=== PATIENT | female | born 1950 | race Caucasian/White ===

== ENCOUNTER → 2020-12-18 10:16 | Outpatient (CLI) | payer MEDICARE, SELFPAY ==
[2020-12-18 10:43] LABS: Basophils % 0.7 % (0.1-2.0); Eosinophils # 0.1 K/mm3 (0.0-0.4); Eosinophils % 1.8 % (0.1-12.0); Hematocrit 47.4 % (37.0-47.0); Hemoglobin 15.1 g/dL (12.2-16.2); Lymphocytes # 1.3 K/mm3 (0.7-4.5); Lymphocytes % 22.2 % (10-50); Mean Corpuscular Hemoglobin 30.4 pg (27.0-31.2); Mean Platelet Volume 8.7 fl (7.4-10.4); Monocytes # 0.5 K/mm3 (0.1-1.0); Monocytes % 8.5 % (1.7-9.3); Neutrophils % 66.8 % (37.0-80.0); Platelet Count 285 K/mm3 (142-424); Red Blood Count 4.98 M/mm3 (4.20-5.40)
[2020-12-18 11:11] LABS: Alanine Aminotransferase 23 U/L (12-78); Albumin/Globulin Ratio 1.4 (1.1-1.8); Alkaline Phosphatase 103 U/L (38-126); Anion Gap 13.7 mEq/L (5-15); Aspartate Amino Transferase 32 U/L (14-36); Bilirubin,Total 0.7 mg/dl (0.2-1.3); Blood Urea Nitrogen 18 mg/dl (7-17); Calcium 9.9 mg/dl (8.4-10.2); Carbon Dioxide 29 mmol/L (22.0-30.0); Chloride 104 mmol/L (98-107); Chol/HDL Ratio 2.8 (1-3.5); Cholesterol 166 mg/dl (140-200); Estimated Glomerular Filt Rate 83 ml/min (>60); GFR (African American) 100 ML/MIN (>60); Globulin 2.9 g/dL (1.3-3.2); Glucose 105 mg/dl (74-100); HDL Cholesterol 59 mg/dl (40-60); Potassium 4.7 mmoL/L (3.5-5.1); Sodium 142 mmol/L (136-145); Total Protein,Serum 6.9 g/dl (6.3-8.2); Triglycerides 101 mg/dl (30-150); VLDL Cholesterol 20 mg/dL (0-40)
[2020-12-18 11:23] LABS: Direct LDL Cholesterol 80.87 mg/dL (100-129)
== END ==
PROVIDERS: Visit Provider Internal Medicine
DX: I10 Essential (primary) hypertension (principal); M15.0 Primary generalized (osteo)arthritis; E78.5 Hyperlipidemia, unspecified; G60.9 Hereditary and idiopathic neuropathy, unspecified; Z86.2 Personal history of diseases of the blood and blood-forming organs and certain disorders involving the immune mechanism
CPT/HCPCS: 36415; 80053; 80061; 85025

== ENCOUNTER → 2021-06-17 12:20 | Outpatient (CLI) | payer MEDICARE, SELFPAY ==
[2021-06-17 13:59] LABS: Basophils # 0.2 K/mm3 (0-0.2); Basophils % 3.1 % (0.1-2.0); Eosinophils # 0.1 K/mm3 (0.0-0.4); Eosinophils % 2.2 % (0.1-12.0); Hematocrit 47.3 % (37.0-47.0); Hemoglobin 14.9 g/dL (12.2-16.2); Lymphocytes # 1.6 K/mm3 (0.7-4.5); Lymphocytes % 24.9 % (10-50); Mean Corpuscular HGB Conc 31.5 g/dL (31.8-35.4); Mean Corpuscular Hemoglobin 30.2 pg (27.0-31.2); Mean Corpuscular Volume 95.9 fl (81-99); Mean Platelet Volume 9.7 fl (7.4-10.4); Monocytes # 0.6 K/mm3 (0.1-1.0); Neutrophils # 3.8 K/mm3 (1.8-7.8); Neutrophils % 60.8 % (37.0-80.0); Platelet Count 285 K/mm3 (142-424); Red Blood Count 4.93 M/mm3 (4.20-5.40); Red Cell Distribution Width 13.4 % (11.5-17.5); White Blood Count 6.2 K/mm3 (4.8-10.8)
[2021-06-17 15:19] LABS: Alanine Aminotransferase 20 U/L (12-78); Albumin Level 3.9 g/dl (3.5-5.0); Albumin/Globulin Ratio 1.5 (1.1-1.8); Alkaline Phosphatase 104 U/L (38-126); Anion Gap 10.9 mEq/L (5-15); Aspartate Amino Transferase 25 U/L (14-36); Bilirubin,Total 0.8 mg/dl (0.2-1.3); Blood Urea Nitrogen 25 mg/dl (7-17); Calcium 9.5 mg/dl (8.4-10.2); Carbon Dioxide 30 mmol/L (22.0-30.0); Chloride 103 mmol/L (98-107); Chol/HDL Ratio 2.9 (1-3.5); Cholesterol 168 mg/dl (140-200); Estimated Glomerular Filt Rate 82 ml/min (>60); GFR (African American) 100 ML/MIN (>60); Globulin 2.6 g/dL (1.3-3.2); Glucose 86 mg/dl (74-100); HDL Cholesterol 58 mg/dl (40-60); Potassium 4.9 mmoL/L (3.5-5.1); Sodium 139 mmol/L (136-145); Total Protein,Serum 6.5 g/dl (6.3-8.2); Triglycerides 96 mg/dl (30-150); VLDL Cholesterol 19 mg/dL (0-40)
[2021-06-17 15:30] LABS: Direct LDL Cholesterol 79.65 mg/dL (100-129)
== END ==
PROVIDERS: Visit Provider Internal Medicine
DX: I10 Essential (primary) hypertension (principal); E78.5 Hyperlipidemia, unspecified; M15.0 Primary generalized (osteo)arthritis; Z86.2 Personal history of diseases of the blood and blood-forming organs and certain disorders involving the immune mechanism
CPT/HCPCS: 80053; 80061; 85025

== ENCOUNTER 2021-07-03 21:09 | Inpatient (IN) | payer MEDICARE, SELFPAY ==
[2021-07-03 21:09] VITALS: BP 140/74; PULSE 85; RESP 20; TEMP 36.4; O2SAT 95; BMI 33.3
--- NOTE | 2021-07-03 21:12 | XR_ITS ---
PROCEDURE INFORMATION: Exam: XR Left Hip Exam date and time: 07/03/2021 9:26 PM Age: 71 years old Clinical indication: Injury or trauma; Fall; Blunt trauma (contusions or hematomas); Left; Hip; Additional info: Fall from standing TECHNIQUE: Imaging protocol: XR Left hip. Views: 2 or 3 views hip with pelvis when performed. Total images: 3 COMPARISON: ABDPELW/O CT ABD PELVIS W/O CONTRAST 09/22/2016 11:12 PM FINDINGS: Bones/joints: Osteopenia. Comminuted intertrochanteric fracture of the left proximal femur with about 2 cm impaction at the medial margin of the fracture producing mild Verus angulation. Mildly displaced comminuted fracture extension to involve the greater trochanter and possible nondisplaced extension in the lesser trochanter. No pelvic/acetabular fractures are evident. The SI joints and pubic symphysis demonstrate minor osteoarthritic changes without diastasis. Soft tissues: No gross soft tissue abnormalities. IMPRESSION: 1. Intertrochanteric fracture of the left proximal femur detailed above. 2. Osteopenia.
--- NOTE | 2021-07-03 21:12 | XR_ITS ---
PROCEDURE INFORMATION: Exam: XR Left Femur Exam date and time: 07/03/2021 9:28 PM Age: 71 years old Clinical indication: Injury or trauma; Fall; Blunt trauma; Hip; Left; Additional info: Fall from standing TECHNIQUE: Imaging protocol: XR Left femur. Views: 2 views. Total images: 4 COMPARISON: CR XR HIP LT 2-3V W/PELVIS 07/03/2021 9:26 PM FINDINGS: Bones/joints: Osteopenia. Comminuted intertrochanteric fracture of the left proximal femur with about 2 cm impaction at the medial margin of the fracture interface. Minimally displaced comminuted fracture extension into the greater and lesser trochanters. No pelvic/acetabular fractures were evident. The mid and distal femur were intact. Advanced osteoarthritic changes in the tibiofemoral compartments of the left knee. Soft tissues: Question soft tissue swelling around the left hip. IMPRESSION: 1. Intertrochanteric fracture of the left proximal femur detailed above. The mid and distal left femur are intact. 2. Osteopenia and osteoarthritic changes.
--- NOTE | 2021-07-03 21:15 | HMH.EDGENADL ---
ED Disposition Clinical Impression: Intertrochanteric fracture of left femur Qualifiers: Encounter type: initial encounter Fracture type: closed Fracture alignment: displaced Qualified Code(s): S72.142A - Displaced intertrochanteric fracture of left femur, initial encounter for closed fracture Disposition: Admitted As Inpatient Condition on Discharge: Patient was admitted - Critical Care Critical Care Time: No Attestation: On , the high probability of a clinically significant, sudden or life threatening deterioration of the following system(s) required my full and direct attention, intervention and personal management. The time I documented below is in addition to time spent performing reported procedures but includes the following listed in this critical care notation. Medical Decision Making - Medical Records Medical records reviewed: Yes: I reviewed the patient's medical records. - Simon Inquiry Pt receiving controlled substance: No Vital Signs: 07/03/21 21:09 07/03/21 22:01 Temperature 97.6 F Temperature Source Oral Pulse Rate 87 Pulse Rate [Right] 85 Respiratory Rate 20 Blood Pressure 158/87 H Blood Pressure [Right Arm] 140/74 Blood Pressure Mean [Right Arm] 96 Blood Pressure Source [Right Arm] Automatic Cuff 02 Sat by Pulse Oximetry 95 91 L Oxygen Delivery Method Room Air Room Air - Lab Data Lab Results 07/03/21 21:27: WBC 8.0, RBC 4.67, Hgb 14.0, Hct 43.9, MCV 94.1, MCH 30.0, MCHC 31.9, RDW 13.4, Plt Count 250, MPV 8.8, Neut % (Auto) 77.8, Lymph % (Auto) 14.4, Crosby % (Auto) 5.2, Eos % (Auto) 1.3, Baso % (Auto) 1.3, Neut # (Auto) 6.2, Lymph # (Auto) 1.2, Crosby # (Auto) 0.4, Eos # (Auto) 0.1, Baso # (Auto) 0.1 07/03/21 21:27: Sodium 137, Potassium 3.6, Chloride 105, Carbon Dioxide 27, Anion Gap 8.6, BUN 20 H, Creatinine 0.80, Estimated Creat Clear 70, Estimated GFR 71, Est GFR ( Amer) 86, Glucose 148 H, Calcium 8.6 07/03/21 21:27: Blood Type O Positive 07/03/21 21:53: SARS-CoV-2 (PCR) Not detected, Influenza A Untype (PCR) Not detected, Influenza Type B (PCR) Not detected 07/03/21 22:22: Urine Color Yellow, Urine Appearance Clear, Urine pH 5.0, Ur Specific Monument >= 1.030, Urine Protein Negative, Urine Glucose (UA) Negative, Urine Ketones Negative, Urine Blood Negative, Urine Nitrate Negative, Urine Bilirubin Negative, Urine Urobilinogen 0.2, Ur Leukocyte Esterase Negative, Urine RBC None, Urine WBC Occasional, Ur Squamous Epith Cells None, Urine Bacteria Trace Result diagrams: 07/03/21 21:27 07/03/21 21:27 Orders (Tests/Meds): ED MEDICATIONS Generic Name Dose Route Start Last Admin Trade Name Freq PRN Reason Stop Dose Admin Sodium Chloride 1,000 mls @ 999 mls/hr 07/03/21 21:15 07/03/21 21:58 Sod Chlor 0.9% 1000ml Bag IV 07/03/21 22:15 999 mls/hr .Q1H1M KULWANT Administration Sodium Chloride 1,000 mls @ 75 mls/hr 07/03/21 23:15 Sod Chlor 0.9% 1000ml Bag IV 08/02/21 23:14 .[id number] KULWANT Morphine Sulfate 4 mg 07/03/21 21:12 07/03/21 21:58 Morphine 4mg/Ml Syringe IV 08/02/21 21:11 4 mg ONCE PRN Administration Severe Pain Morphine Sulfate 4 mg 07/03/21 23:04 Morphine 4mg/Ml Syringe IV 08/02/21 23:03 Q4HP PRN Severe Pain Ondansetron HCl 4 mg 07/03/21 21:12 07/03/21 21:57 Ondansetron 4mg/2ml Vial IV 08/02/21 21:11 4 mg Q6 PRN Administration Nausea And Vomiting Sodium Chloride 10 ml 07/03/21 23:04 Sodium Chloride 0.9% 10ml Flush Syringe IV 08/02/21 23:03 NEEDED PRN Maintain IV Site ORDERS Category Date Time Status Type and Screen Stat K 07/03/21 21:27 Results - Radiology Data #1 Image(s): Chest Image Reviewed: Yes I reviewed the patient's radiology results, Yes I reviewed the patient's radiology image IMPRESSION: 1. No acute thoracic process. 2. Very large chronic hiatal hernia grossly unchanged from 09/22/2016. 3. Minor compressive atelectasis in the lower lobes simil
[2021-07-03 21:43] VITALS: BMI 30.7
--- NOTE | 2021-07-03 21:44 | XR_ITS ---
PROCEDURE INFORMATION: Exam: XR Chest Exam date and time: 07/03/2021 9:42 PM Age: 71 years old Clinical indication: Injury or trauma; Fall; Blunt trauma (contusions or hematomas); Additional info: L hip FX TECHNIQUE: Imaging protocol: XR of the chest. Views: 1 view. Total images: 1 COMPARISON: [facility] CT CHEST W/O CONTRAST 09/22/2016 11:09 PM FINDINGS: Lungs: Pulmonary vasculature grossly normal. No definite pulmonary infiltrates. There is bandlike alveolar density in the left base probably representing compressive atelectasis adjacent to the large hiatal hernia, similar to chest CT 09/22/2016. Additional minor atelectasis in the medial right base unchanged. Pleural spaces: No definite pleural effusion although left basilar opacities related to the hiatal hernia limits sensitivity on the left. No pneumothorax. Heart/Mediastinum: Heart size normal. Very large hiatal hernia measuring about 22 cm transverse, grossly unchanged from CT 09/22/2016. No tracheal/mediastinal shift. Bones/joints: No acute osseous abnormalities are identified. Osteopenia. Intraperitoneal space: Right upper quadrant surgical clips suggest prior cholecystectomy. IMPRESSION: 1. No acute thoracic process. 2. Very large chronic hiatal hernia grossly unchanged from 09/22/2016. 3. Minor compressive atelectasis in the lower lobes similar to prior scan.
[2021-07-03 21:48] LABS: Chloride 105 mmol/L (98-107); Potassium 3.6 mmoL/L (3.5-5.1); Sodium 137 mmol/L (136-145)
[2021-07-03 21:50] LABS: Blood Urea Nitrogen 20 mg/dl (7-17); Creatinine Clearance Estimated 70 mL/min (50-200); Estimated Glomerular Filt Rate 71 ml/min (>60); GFR (African American) 86 ML/MIN (>60)
[2021-07-03 21:51] LABS: Anion Gap 8.6 mEq/L (5-15); Basophils # 0.1 K/mm3 (0-0.2); Basophils % 1.3 % (0.1-2.0); Calcium 8.6 mg/dl (8.4-10.2); Carbon Dioxide 27 mmol/L (22.0-30.0); Eosinophils # 0.1 K/mm3 (0.0-0.4); Eosinophils % 1.3 % (0.1-12.0); Glucose 148 mg/dl (74-100); Hematocrit 43.9 % (37.0-47.0); Lymphocytes # 1.2 K/mm3 (0.7-4.5); Lymphocytes % 14.4 % (10-50); Mean Corpuscular HGB Conc 31.9 g/dL (31.8-35.4); Mean Corpuscular Volume 94.1 fl (81-99); Mean Platelet Volume 8.8 fl (7.4-10.4); Monocytes # 0.4 K/mm3 (0.1-1.0); Monocytes % 5.2 % (1.7-9.3); Neutrophils # 6.2 K/mm3 (1.8-7.8); Neutrophils % 77.8 % (37.0-80.0); Platelet Count 250 K/mm3 (142-424); Red Blood Count 4.67 M/mm3 (4.20-5.40); Red Cell Distribution Width 13.4 % (11.5-17.5)
[2021-07-03 22:01] VITALS: BP 158/87; PULSE 87; O2SAT 91
--- NOTE | 2021-07-03 22:05 | PC.NURSE ---
Dr. Perrin paged
--- NOTE | 2021-07-03 22:07 | PC.NURSE ---
Notified by diamond saw operator that she left a message for Dr. Perrin
[2021-07-03 22:24] LABS: Microscopic, Urine URINE MICROSCOPIC (MICROSCOPIC)
[2021-07-03 22:26] LABS: Coronavirus 19, PCR Not Detected (NotDetected); Influenza A, PCR Not Detected (NotDetected); Influenza B, PCR Not Detected (NotDetected)
[2021-07-03 22:27] LABS: Appearance,Urine CLEAR (Clear); Bilirubin,Urine Negative (Negative); Blood, Urine Negative (Negative); Color,Urine YELLOW (Yellow); Glucose,Urine (UA) Negative (Negative); Ketones,Urine Negative (Negative); Leukocyte Esterase,Urine Negative (Negative); Nitrate,Urine Negative (Negative); Protein,Urine Negative (Negative); Specific Gravity, Urine >= 1.030 (1.005-1.030); Urobilinogen,Urine 0.2 EU/dl (0.2)
--- NOTE | 2021-07-03 22:29 | PC.NURSE ---
RYANN REGALADO speaking to Dr. Perrin
--- NOTE | 2021-07-03 22:32 | PC.NURSE ---
paged dr reynolds @ this time
--- NOTE | 2021-07-03 22:34 | PC.NURSE ---
pt s/w Dr. Frankel for admission
[2021-07-03 22:40] VITALS: BMI 32.2
[2021-07-03 22:42] LABS: Bacteria,Urine Trace /lpf; WBC,Urine Occasional #/hpf (0-3)
[2021-07-03 23:24] VITALS: BP 139/83; PULSE 84; RESP 20; TEMP 36.4; O2SAT 95
--- NOTE | 2021-07-03 23:26 | PC.NURSE ---
patient up to floor via stretcher @ this time.
[2021-07-03 23:46] VITALS: BP 147/73; PULSE 87; RESP 18; TEMP 36.7; O2SAT 90
[2021-07-04] VITALS (18 sets, daily range): BP systolic 102–153; BP diastolic 59–88; PULSE 77–97; RESP 15–20; TEMP 36.4–43; O2SAT 91–96
--- NOTE | 2021-07-04 07:19 | P.CONPHA_ITS ---
[facility] Pharmacy VTE Monitoring - Patient Demographics Admission date: 07/03/21 Report Date: 07/04/21 Time: 07:19 Allergies/Adverse Reactions: Patient Allergies No Known Allergies Allergy (Unverified 03/16/17 14:44) Height: 1.68 m Weight: 90.9 kg Patient Problems: Current Active Problems Intertrochanteric fracture of left femur (Acute) - VTE Risk Labs: VTE Related Lab Results Hgb 14.0 g/dL (12.2-16.2) 07/03/21 21:27 Hct 43.9 % (37.0-47.0) 07/03/21 21:27 Plt Count 250 K/mm3 (142-424) 07/03/21 21:27 BUN 20 mg/dl (7-17) H 07/03/21 21:27 Creatinine 0.80 mg/dl (0.52-1.04) 07/03/21 21:27 Estimated Creat Clear 70 mL/min (50-200) 07/03/21 21:27 Was VTE Risk Assessment Performed: Yes VTE Score: 5 VTE Risk Level: Low Risk - Prophylaxis VTE Prophylaxis Ordered?: Yes Types of VTE Prophylaxis: TEDS Knee High Location of Applied Device: Bilateral Lower Extremeties
--- NOTE | 2021-07-04 07:39 | HMH.PHAINT ---
MEDICATION RECONCILIATION COMPLETED ON PATIENT USING EXTERNAL FILL HISTORY FROM PHARMACY. -SHANI WARNER, BRANDOND
--- NOTE | 2021-07-04 09:29 | HMH.HP ---
*Admission Date: 07/03/21 <Aviva Gutierrez 07/04/21 09:30> *Chief complaint: left hip pain <Aviva Gutierrez 07/04/21 09:37> *History of present illness: 71-year-old female with past medical history of hyperlipidemia, hypertension who is presenting to the ED after a fall from standing with left hip pain. Patient was outside, feeding her dogs when accidentally slipped on flat rocks. She did not hit her head, negative LOC. She complains of pain in her left hip/proximal femur with movement. This is a closed injury. Her vital signs were stable in route with EMS. She is neurovascularly intact distally with palpable DP/PT pulse on the left foot. She has mild swelling over the proximal left femur, she has no abdominal pain, no chest pain, no shortness of breath, she is alert and oriented x3, she denies headache, back pain, cervical spinal pain. She has no prior surgeries on her left leg. She has no pain in her right leg. States that her pain is well controlled however with movement it is worse. She has no other concerns. (Above as per ER physician) The patient was evaluated in the emergency room and was started on morphine for pain and Zofran for nausea. The x-ray of her pelvis and femur showed a left intertrochanteric femur fracture. The ER physician spoke with orthopedics and admitted the patient overnight for surgery today. This morning, the patient only has pain with movement. She is awaiting orthopedics consult. <Aviva Gutierrez 07/04/21 09:37> [facility] History I have reviewed the patient's past medical history: Yes <Aviva Gutierrez 07/04/21 09:37> Medical History: Reports:: Hyperlipidemia, Hypertension Denies:: Cancer, Diabetes Mellitus Type 1, Diabetes Mellitus Type 2, Internal Pacemaker, MRSA <Aviva Gutierrez 07/04/21 09:30> *Have you ever received a pneumonia vaccine?: No <Aviva Gutierrez 07/04/21 09:30> *Have you received a flu vaccine this season?: Yes <Aviva Gutierrez 07/04/21 09:30> Other Medical History: Reports: Arthritis <Aviva Gutierrez 07/04/21 09:37> Laterality Cases: Bilateral: Cataract <Aviva Gutierrez 04/08/22 09:37> Other Surgeries: Yes: Cholecystectomy, Other (tooth implant). No: Pacemaker <Aviva Gutierrez 07/04/21 09:37> Fractures: Yes (recent) <Aviva Gutierrez 07/04/21 09:30> - *Social History Last grade of school completed: Advanced degree <Aviva Gutierrez 07/04/21 09:30> Smoking Status: Never smoker <Aviva Gutierrez 07/04/21 09:30> Alcohol Intake: never <Aviva Gutierrez 07/04/21 09:30> *Occupational Status:: retired <Aviva Gutierrez 07/04/21 09:30> Housing: house <Aviva Gutierrez 07/04/21 09:30> Household Members: none <Aviva Gutierrez 07/04/21 09:30> *Travel in the last 8 weeks: None <Aviva Gutierrez 07/04/21 09:30> Family Hx:: Heart Attack, Hypertension, Stroke <Aviva Gutierrez 07/04/21 09:37> Review of Systems - Constitutional Denies chills, Denies fever(s) <Aviva Gutierrez 07/04/21 09:37> - Eyes Denies blurry vision, Denies double vision <Harshil Gutierrez07/04/21 09:37> - ENT Denies nasal congestion, Denies sore throat <Aviva Gutierrez 07/04/21 09:37> - *Cardiovascular Denies chest pain, Denies shortness of breath <Aviva Gutierrez 07/04/21 09:37> - *Respiratory Denies cough, Denies shortness of breath <Aviva Gutierrez 07/04/21 09:37> - *Gastrointestinal Denies abdominal pain, Denies loose stools, Denies nausea, Denies vomiting <Aviva Gutierrez 07/04/21 09:37> - *Genitourinary Denies difficulty urinating, Denies painful urination <Aviva Gutierrez 07/04/21 09:37> - *Musculoskeletal Reports joint pain (left hip), Reports body aches <Aviva Gutierrez 07/04/21 09:37> - *Neurologic Denies headache(s), Denies dizziness, Denies weakness <Aviva Gutierrez - 07/04/21 09:37> Meds Home Medications Medication Instructions Recorded Confirmed Type hydroCHLOROthiazide 25 mg PO DAILY 02/18/19 07/03/21 History [Hydrochlorothiazide 12.5mg Tab] Naproxen [N
--- NOTE | 2021-07-04 09:49 | CT_ITS ---
FINAL REPORT TECHNIQUE: Thin section axial CT images with coronal and sagittal reformats were performed. This study was performed with techniques to keep radiation doses as low as reasonably achievable (ALARA). Individualized dose reduction techniques using automated exposure control or adjustment of mA and/or kV according to the patient''s size were employed. CLINICAL HISTORY: left hip fracture FINDINGS: There is a comminuted left intertrochanteric fracture with mild impaction of the main fragments. The femoral head is properly located. No other fracture or dislocation is identified. IMPRESSION: Fracture as above. Reviewed, Interpreted and Dictated by Jayy Santos III, MD Transcribed by Nhung Garcia Authenticated by Jayy Santos III, MD on 07/04/2021 11:28:14 AM [facility]
--- NOTE | 2021-07-04 09:50 | HMH.ORTHOCON ---
*Admission Date: 07/03/21 <Karen Orlando 07/04/21 09:53> *Reason for consult:: Left intertrochanteric femur fracture <Karen Orlando 07/04/21 09:53> *History of present illness: Patient is a 71-year-old female admitted to the acute inpatient service from the [facility] ED yesterday 07/03/2021 after sustaining a fall at home. The patient was outside feeding her dog last night when she reports that she slipped on a rock and fell landing on her left hip. She reports that she had immediate pain in the left hip at that time and was subsequently brought to the [facility] emergency department via EMS for evaluation. X-ray performed in the emergency department demonstrates a left intertrochanteric femur fracture. This morning the patient is lying comfortably in bed. She reports that she has no pain at rest but that attempted movements of the left hip/leg are painful. She reports that her pain is well controlled with rest and oral pain medication. She denies hitting her head, any other injuries, chest pain, shortness of breath, palpitations, or distal tingling/numbness. At baseline she does not use a cane or walker to ambulate and lives alone in her own home. She is independent for all activities of daily living. Her past medical history is significant for hypertension and hyperlipidemia. She denies any other symptoms or concerns at this time. <Karen Orlando 07/04/21 09:53> [facility] History Medical History: Reports:: Hyperlipidemia, Hypertension Denies:: Cancer, Diabetes Mellitus Type 1, Diabetes Mellitus Type 2, Internal Pacemaker, MRSA <Karen Orlando 07/04/21 09:53> *Have you ever received a pneumonia vaccine?: No <Karen Orlando 07/04/21 09:53> *Have you received a flu vaccine this season?: Yes <Karen Orlando 07/04/21 09:53> Other Medical History: Reports: Arthritis <Karen Orlando 07/04/21 09:53> Laterality Cases: Bilateral: Cataract <Karen Orlando 07/04/21 09:53> Other Surgeries: Yes: Cholecystectomy, Other (tooth implant). No: Pacemaker <Karen Orlando 07/04/21 09:53> Fractures: Yes (recent) <Karen Orlando 07/04/21 09:53> - *Social History Last grade of school completed: Advanced degree <Karen Orlando 07/04/21 09:53> Smoking Status: Never smoker <Karen Orlando 07/04/21 09:53> Alcohol Intake: never <Karen Orlando 07/04/21 09:53> *Occupational Status:: retired <Karen Orlando 07/04/21 09:53> Housing: house <Karen Orlando 07/04/21 09:53> Household Members: none <Karen Orlando 07/04/21 09:53> *Travel in the last 8 weeks: None <Karen Orlando 07/04/21 09:53> Family Hx:: Heart Attack, Hypertension, Stroke <Karen Orlando 07/04/21 09:53> Review of Systems - Review of Systems Review of systems:: pertinent systems reviewed and negative unless documented below <Karen Orlando 07/04/21 10:13> - Constitutional Denies anorexia, Denies fatigue, Denies fever(s), Denies headache(s), Denies weakness <Karen Orlando 07/04/21 10:13> - Eyes Denies blind spots, Denies change in vision, Denies double vision <Karen Orlando 07/04/21 10:13> - ENT Denies abnormal hearing, Denies poor balance, Denies dizziness, Denies difficulty swallowing, Denies headache(s), Denies nasal congestion, Denies neck pain, Denies nose pain, Denies sore throat <Karen Orlando 07/04/21 10:13> - *Cardiovascular Denies chest pain, Denies chest pain at rest, Denies shortness of breath, Denies shortness of breath with activity, Denies foot swelling <Karen Orlando 07/04/21 10:13> - *Respiratory Denies chest congestion, Denies cough, Denies shortness of breath, Denies shortness of breath with activity, Denies pain with cough, Denies stridor, Denies wheezing <Karen Orlando - 07/04/21 10:13> - *Gastrointestinal Denies abdominal pain, Denies change in bowel habits, Denies change in stools, Denies constipation, Denies loose stools, Denies black, tarry
--- NOTE | 2021-07-04 14:20 | HMH.ANESCL ---
[facility] Anesthesia Checklist - Patient Identification Patient Identification: Arm Band - Structural Data Admitted From: Inpatient Planned Operative Procedure/s: Gamma nail Consent for Planned Operative Procedure(s) Verified: Yes - NPO Status Verified Time NPO: 00:00 - Airway Assessment C-Spine Mobility Assessed: Yes TMJ Mobility Assessed: Yes Dentition: Good Dentition - Neurological Assessment Level of Consciousness: Awake Hx Seizures: No Numbness or tingling in extremities: No - Anesthesia Plan Anesthesia Risk discussed: Yes Anesthesia Plan: Verified ASA Class: II Anesthesia Type: Spinal (SPINAL/GENERAL) [facility] History I have reviewed the patient's past medical history: Yes Medical History: Reports:: Gastroesophageal Reflux Disease(GERD), Hyperlipidemia, Hypertension Denies:: Cancer, Diabetes Mellitus Type 1, Diabetes Mellitus Type 2, Internal Pacemaker, MRSA *Have you ever received a pneumonia vaccine?: No *Have you received a flu vaccine this season?: Yes Other Medical History: Reports: Arthritis Anesthesia experience/problems:: None Laterality Cases: Bilateral: Cataract Other Surgeries: Yes: Cholecystectomy, Other (tooth implant). No: Pacemaker Fractures: Yes (recent) - *Social History Last grade of school completed: Advanced degree Smoking Status: Never smoker Alcohol Intake: never Substance Use Type: denies use *Occupational Status:: retired Housing: house Household Members: none *Travel in the last 8 weeks: None Family Hx:: Heart Attack, Hypertension, Stroke
--- NOTE | 2021-07-04 16:16 | SUR.OPER ---
1555-family updated at this time
--- NOTE | 2021-07-04 16:38 | XR_ITS ---
PROCEDURE INFORMATION: Exam: XR Left Femur Exam date and time: 07/04/2021 3:05 PM Age: 71 years old Clinical indication: Device placement; Other: Gamma nail; Additional info: Left gamma nail placement in or. Fluoro time-1.30 TECHNIQUE: Imaging protocol: XR Left femur. Views: 2 views. COMPARISON: CR XR FEMUR LT 2V 07/03/2021 9:28 PM FINDINGS: Tubes, catheters and devices: Limited fluoroscopic images submitted for review prior to placement of fixation device. Bones/joints: Previously demonstrated intertrochanteric fracture is again identified. Soft tissues: Unremarkable. IMPRESSION: Fluoroscopic images demonstrating left intertrochanteric fracture.
--- NOTE | 2021-07-04 17:32 | HMH.ANESI ---
[facility] Anesthesia Record Part I Intake, IV Amount: 200 Estimated blood loss (mL): 200 Urine output (mL): 600 Blood Pressure: 151/64 SaO2: 94 Pulse Rate: 97 Respiratory Rate: 20 Temperature: 98.3 F Patient is:: Drowsy Stable to PACU at:: 17:20
--- NOTE | 2021-07-04 18:00 | HMH.OPNOTE ---
Date of procedure: 07/04/21 Pre-op Diagnosis:: Closed, comminuted, displaced intertrochanteric fracture, left femur. Post-op Diagnosis:: Same Procedure performed:: Closed reduction and cephalomedullary nailing, left femur Surgeon:: Acosta Perrin MD Provider Relations Advocate(s):: Karen Orlando PA-C OYSTER GROWER:: Almas Larry Anesthesia: LMA Estimated blood loss (mL): 300 Clinical Note:: Patient is a 71-year-old female who tripped and fell sustaining an injury to her left hip yesterday. Following evaluation in the emergency room where x-ray showed a displaced and comminuted intertrochanteric fracture of the left proximal femur, patient was admitted for further management. After evaluating the patient, I have discussed the diagnosis and management options in detail including nonsurgical and surgical, with the patient. Prior to the injury patient was active and mobile independently. She lives by herself. After a detailed discussion with the patient a decision was made to fix the fracture internally with a cephalo-medullary nail. I have discussed the procedure, risks and benefits, postoperative recovery and rehabilitation and the expected outcomes. The complications discussed include but are not limited to DVT, PE, infection, bleeding, injury to nerves and blood vessels, screw cut-out/implant failure, loss of fixation, nonunion, malunion/malrotation, osteonecrosis of the femoral head, femoral shaft fracture, painful hardware, heterotopic ossification, stiffness, weakness, incomplete relief of pain, incomplete return of function or motion and the likely need for further surgery in future, and anesthetic/medical complications including heart attack, stroke, transfusion reaction or . The patient wished to proceed with the surgical remediation. Consent form was reviewed and signed by me. The limb was appropriately marked and initialed by me. Following appropriate preoperative workup and medical clearance, patient is brought to the operating room for surgery. The surgery is indicated to reduce and stabilize the fracture, relieve pain and improve function. Patient understood the risks, agreed to proceed with surgery, signed the consent form and no guarantees or assurances were given or implied. Operative findings:: Comminuted, displaced and unstable intertrochanteric fracture left proximal femur as noted on the preoperative imaging. The fracture is well reduced with closed manipulation prior to fixation. Bone quality is good. Operative note:: Following appropriate preoperative workup and medical clearance, patient is brought to the operating room and a general anesthesia was administered by the camera engineer. Patient was then positioned supine on the fracture table and all the bony prominences were appropriately padded. The left foot was secured in the footplate and the footplate was attached to the fracture table. The right leg was placed out of the way in a leg means. Under fluoroscopic guidance the fracture was reduced by traction and satisfactory reduction was obtained. The reduction was confirmed on both AP and lateral views. The left hip and thigh were then prepped and draped in the usual sterile fashion. Administration of prophylactic antibiotics was confirmed with the camera engineer (IV Ancef and vancomycin). A preprocedure timeout was performed as per the hospital protocol. After marking the level of the greater trochanter on the skin under fluoroscopy, a skin incision was made proximal to the greater trochanter in line with the femoral shaft. The dissection was then carried through the subcutaneous tissue. The tensor fascia muscle was split in line with the fibers. This provided access to the tip of the greater trochanter. Under fluoroscopic guidance a guidewire was placed at the tip of the greater trochanter, the position was confirmed on both fluoroscopic views and advanced into the proximal femur. The proximal segment was then reamed over the guidewire and the guidewire was
--- NOTE | 2021-07-04 18:08 | PC.NURSE ---
174-detailed report called to Tanya Luevano RN [id number]-pt transported to 2nd floor room 201 via hospital bed per JENNIFER Talamantes and ROLANDO Pizarro, pt left in care of JENNIFER Roman with bed locked in lowest position, vss,pt stable family at bedside
[2021-07-05] VITALS: BP 126/73; PULSE 88; RESP 16; TEMP 36.4; O2SAT 93
[2021-07-05 04:00] VITALS: BP 123/71; PULSE 90; RESP 16; TEMP 36.8; O2SAT 96
[2021-07-05 05:00] VITALS: BMI 31.8
[2021-07-05 07:19] LABS: Basophils % 0.3 % (0.1-2.0); Eosinophils # 0.1 K/mm3 (0.0-0.4); Eosinophils % 0.7 % (0.1-12.0); Hematocrit 35.5 % (37.0-47.0); Hemoglobin 11.8 g/dL (12.2-16.2); Lymphocytes # 1.2 K/mm3 (0.7-4.5); Lymphocytes % 12.1 % (10-50); Mean Corpuscular HGB Conc 33.2 g/dL (31.8-35.4); Mean Corpuscular Hemoglobin 30.9 pg (27.0-31.2); Mean Platelet Volume 8.6 fl (7.4-10.4); Monocytes # 0.5 K/mm3 (0.1-1.0); Monocytes % 5.7 % (1.7-9.3); Neutrophils # 7.7 K/mm3 (1.8-7.8); Neutrophils % 81.2 % (37.0-80.0); Platelet Count 184 K/mm3 (142-424); Red Blood Count 3.81 M/mm3 (4.20-5.40); Red Cell Distribution Width 13.3 % (11.5-17.5); White Blood Count 9.5 K/mm3 (4.8-10.8)
[2021-07-05 07:21] LABS: Chloride 106 mmol/L (98-107); Potassium 3.4 mmoL/L (3.5-5.1); Sodium 136 mmol/L (136-145)
[2021-07-05 07:23] LABS: Blood Urea Nitrogen 13 mg/dl (7-17); Creatinine Clearance Estimated 73 mL/min (50-200); Estimated Glomerular Filt Rate 99 ml/min (>60); GFR (African American) 119 ML/MIN (>60)
[2021-07-05 07:24] LABS: Alanine Aminotransferase 26 U/L (12-78); Albumin/Globulin Ratio 1.3 (1.1-1.8); Alkaline Phosphatase 82 U/L (38-126); Anion Gap 6.4 mEq/L (5-15); Aspartate Amino Transferase 37 U/L (14-36); Bilirubin,Total 0.6 mg/dl (0.2-1.3); Calcium 7.7 mg/dl (8.4-10.2); Carbon Dioxide 27 mmol/L (22.0-30.0); Globulin 2.4 g/dL (1.3-3.2); Glucose 124 mg/dl (74-100); Total Protein,Serum 5.4 g/dl (6.3-8.2)
[2021-07-05 07:39] VITALS: BP 126/88; PULSE 88; RESP 18; TEMP 36.9; O2SAT 90
--- NOTE | 2021-07-05 08:49 | HMH.ACPN2 ---
Internal Medicine - PN: Subj *Date: 07/05/21 *Time: 08:49 Interval history: POD#1. No unusual complaints. Rested fairly well. Anxious to proceed with therapy. Exam Vital signs and Labs for Last 24 Hours: Temp Pulse Resp BP Pulse Ox 98.4 F 88 18 126/88 90 L 07/05/21 07:39 07/05/21 07:39 07/05/21 07:39 07/05/21 07:39 07/05/21 07:39 Laboratory Results - last 24 hr 07/05/21 06:33: WBC 9.5, RBC 3.81 L, Hgb 11.8 L, Hct 35.5 L, MCV 93.0, MCH 30.9, MCHC 33.2, RDW 13.3, Plt Count 184 D, MPV 8.6, Neut % (Auto) 81.2 H, Lymph % (Auto) 12.1, [place] % (Auto) 5.7, Eos % (Auto) 0.7, Baso % (Auto) 0.3, Neut # (Auto) 7.7, Lymph # (Auto) 1.2, [place] # (Auto) 0.5, Eos # (Auto) 0.1, Baso # (Auto) 0.0 07/05/21 06:33: Sodium 136, Potassium 3.4 L, Chloride 106, Carbon Dioxide 27, Anion Gap 6.4, BUN 13 D, Creatinine 0.60 D, Estimated Creat Clear 73, Estimated GFR 99, Est GFR ( Amer) 119 D, Glucose 124 H, Calcium 7.7 L, Total Bilirubin 0.6, AST 37 H, ALT 26, Alkaline Phosphatase 82, Total Protein 5.4 L, Albumin 3.0 L, Globulin 2.4, Albumin/Globulin Ratio 1.3 I & O for Last 24 hours: Intake & Output 07/02/21 07/03/21 07/04/21 07/05/21 11:59 11:59 11:59 11:59 Intake Total 570 / 570 920 / 920 Output Total 700 / 700 2100 / 2100 Balance -130 / -130 -1180 / -1180 Weight 200 lb 6.4 oz 198 lb 4 oz Narrative: Alert and oriented. Lungs are clear to auscultation. Heart is regular. Extremities no edema or calf tenderness. Assessment and Plan (1) Intertrochanteric fracture of left femur Status: Acute Qualifiers: Encounter type: initial encounter Fracture type: closed Fracture alignment: displaced Qualified Code(s): S72.142A - Displaced intertrochanteric fracture of left femur, initial encounter for closed fracture Category: Medical Code(s): S72.142A - Displaced intertrochanteric fracture of left femur, initial encounter for closed fracture (2) Hypertension Status: Chronic Category: Medical Code(s): I10 - Essential (primary) hypertension (3) Arthritis Status: Chronic Category: Medical Code(s): M19.90 - Unspecified osteoarthritis, unspecified site (4) Hyperlipemia Status: Chronic Category: Medical Code(s): E78.5 - Hyperlipidemia, unspecified - Assessment and plan all Dx Assessment and Plan for all problems:: Doing well POD #1. Proceed with physical therapy as ordered
[2021-07-05 11:02] VITALS: BP 121/64; PULSE 85; RESP 18; TEMP 36.9; O2SAT 92
--- NOTE | 2021-07-05 13:18 | HMH.PTEV ---
Physical Therapy Evaluation Rehab PT IP Evaluation Start: 07/04/21 17:50 Freq: ONCE Status: Active Protocol: Document 07/05/21 13:08 WAI (Rec: 07/05/21 13:17 WAI [id number]) Subjective/History History History Pt admitted to [facility] as 71 YO female, s/p fall, left hip ( femur fx), ORIF sx. on 07/04/21, WBAT LLE Subjective Subjective Pt reports 'feeling pretty good, I'm just tired of sitting in this bed. No pain right now, ready to get up and see how it goes.' Rehab PT IP Eval Objective Appearance Patient Behavior Appropriate,Cooperative Patient Orientation Person,Place,Time,Name,Age Difficulty following instructions none Speech Pattern Clear,Appropriate,Coherent Ambulation Patient Able to Ambulate Yes Ambulation Observation IP General Gait Pattern Observation Antalgic Gait,Shuffling Step, Decrease Weight Bear (L), Decrease Stride Lngth (L) Ambulation Distance (feet) 7 Ambulation Assistive Device Rolling Walker Ambulation Ability Minimal x 1 (25% assist) Balance Ability to Arise Able, uses arms to help Sitting Balance Steady, safe Standing Balance Unsteady Dynamic Sitting Balance Ability Good Dynamic Standing Balance Ability Fair Transfers Bed Transfer Ability Moderate x 1 (50% assist) Chair Transfer Ability Moderate x 1 (50% assist) Sit to Stand Bed Transfer Ability Moderate x 1 (50% assist), Maximum x 1 (75% assist) Pain L Hip Pain Intensity 3 ROM All Extremities PT ROM Status WFL Abnormal ROM Comment limited left hip/LE d/t pain MMT All Extremities PT MMT WFL Abnormal MMT Grade limited left hip d/t pain Rehab PT IP prob,goals,plan Problems Date of Evaluation: 07/05/21 PT IP Problems Bed Mobility,Transfers,Gait, Balance,Self care,Safety Rehab Potential Rehab Potential Good Equipment Needs Assistive Devices Rolling / Wheeled Walker Plan PT Intervention Plan Bed Mobility,Transfers,Gait, Balance,Self care,Safety, Therapeutic Exercise PT Plan Frequency BID Duration LOS Discharge Goals Bed Transfer Ability Minimal x 1 (25% assist) Sit to Stand Chair Transfer Ability Contact Guard/Hand Hold Ambulation Assistive Device Rolling
[2021-07-05 15:12] VITALS: BP 127/69; PULSE 86; RESP 18; TEMP 36.8; O2SAT 91
--- NOTE | 2021-07-05 18:42 | PC.NURSE ---
pt has done well this shift. Got up to chair with therapy and nursing assisted her back to bed. F/C was discontinued. She reports her pain has been well managed. Denies nay SOA. Dressing to left hip is c/d/i
[2021-07-05 20:00] VITALS: BP 140/58; PULSE 92; RESP 18; TEMP 36.9; O2SAT 94
--- NOTE | 2021-07-05 21:43 | HMH.ORTHPN ---
Subjective Date: 07/05/21 Time: 21:15 Principal diagnosis: S/p cephalomedullary nailing, left femur Interval history: Patient is a 71-year-old female, status post cephalo-medullary nailing LEFT femur, post op day #1. She is lying down on the bed and appears comfortable; says she is doing well. She says she started mobilizing with physical therapy and did well this afternoon. She is eating and drinking well. She says her pain is well controlled with as needed pain medication. No history of any fevers, chills or rigors. No history of any nausea, vomiting, chest pain or SOB. PN: Obj Ex Vital signs: Temp Pulse Resp BP Pulse Ox 98.4 F 92 H 18 140/58 L 94 L 07/05/21 20:00 07/05/21 20:00 07/05/21 20:00 07/05/21 20:00 07/05/21 20:00 Narrative: Laboratory Results - last 24 hr 07/05/21 06:33: WBC 9.5, RBC 3.81 L, Hgb 11.8 L, Hct 35.5 L, MCV 93.0, MCH 30.9, MCHC 33.2, RDW 13.3, Plt Count 184 D, MPV 8.6, Neut % (Auto) 81.2 H, Lymph % (Auto) 12.1, [place] % (Auto) 5.7, Eos % (Auto) 0.7, Baso % (Auto) 0.3, Neut # (Auto) 7.7, Lymph # (Auto) 1.2, [place] # (Auto) 0.5, Eos # (Auto) 0.1, Baso # (Auto) 0.0 07/05/21 06:33: Sodium 136, Potassium 3.4 L, Chloride 106, Carbon Dioxide 27, Anion Gap 6.4, BUN 13 D, Creatinine 0.60 D, Estimated Creat Clear 73, Estimated GFR 99, Est GFR ( Amer) 119 D, Glucose 124 H, Calcium 7.7 L, Total Bilirubin 0.6, AST 37 H, ALT 26, Alkaline Phosphatase 82, Total Protein 5.4 L, Albumin 3.0 L, Globulin 2.4, Albumin/Globulin Ratio 1.3 Intake & Output 07/03/21 07/04/21 07/05/21 07/06/21 11:59 11:59 11:59 11:59 Intake Total 570 / 570 920 / 920 720 / 720 Output Total 700 / 700 2100 / 2100 2725 / 2725 Balance -130 / -130 -1180 / -1180 -2004 / Weight 200 lb 6.4 oz 198 lb 4 oz Objective: Vitals, I&O and Labs: I reviewed the vital signs, lab results, medication, nursing notes, medical progress notes and also discussed with the nursing staff regarding patient?s progress. Exam: General appearance: Alert, awake, no acute distress Cardiovascular: regular rate & rhythm Respiratory: no respiratory distress; speaks in full sentences ABD: soft and nontender. Neuro: alert, awake oriented x 3 Psych: Appropriate mood and affect On examination of the LEFT lower extremity, the limb lengths are equal. The alignment is neutral. The dressings over the hip/thigh are clean, dry and intact. Attempted movements of the hip are painful. Distal neurovascular status is intact. Distal pulses are 2+. Distal sensation is intact to light touch throughout. No motor deficits noted distally. Calf is soft and nontender. No clinical signs of DVT noted. - Urinary Catheter Management Koehler Cath placed during this visit: no Progress Note: A&P (1) Intertrochanteric fracture of left femur Status: Acute (2) Hypertension Status: Chronic (3) Arthritis Status: Chronic (4) Hyperlipemia Status: Chronic Assessment and Plan for All Diagnoses:: I have reviewed the clinical findings and progress with the patient. Patient is doing well and advised her to continue mobilization weight bearing as tolerated. Discontinue IV fluids as patient is eating and drinking well. Continue PT/OT, pain management with as needed narcotic analgesics. Care management to look into discharge planning. From an orthopedic standpoint, patient can be discharged when medically appropriate. Recommend DVT prophylaxis for 6 weeks postop. Follow-up in my office in 2 weeks? time with check x-ray. Continue medical management as per Dr. Frankel.
--- NOTE | 2021-07-06 03:22 | PC.NURSE ---
Patient has done well this shift. She has used the bedside commode with 2 assist and tolerated it well. Patient states I haven't had a lot of pain with it, just when I move around . Patient has used her IS while awake. Patient has voiced no complaints to this RN. Will continue to monitor.
[2021-07-06 04:31] VITALS: BP 145/77; PULSE 88; RESP 18; TEMP 37; O2SAT 91
[2021-07-06 05:00] VITALS: BMI 31.8
[2021-07-06 07:14] VITALS: BP 132/79; PULSE 89; RESP 17; TEMP 36.9; O2SAT 93
--- NOTE | 2021-07-06 09:06 | HMH.ACPN2 ---
Internal Medicine - PN: Subj *Date: 07/06/21 *Time: 09:06 Interval history: POD#2 No unusual complaints. She rested fairly well. She was able to sit up in the chair yesterday. Does not feel comfortable going home and is interested in acute rehab placement. Exam Vital signs and Labs for Last 24 Hours: Temp Pulse Resp BP Pulse Ox 98.5 F 89 17 132/79 93 L 07/06/21 07:14 07/06/21 07:14 07/06/21 07:14 07/06/21 07:14 07/06/21 07:14 I & O for Last 24 hours: Intake & Output 07/03/21 07/04/21 07/05/21 07/06/21 11:59 11:59 11:59 11:59 Intake Total 570 / 570 920 / 920 960 / 960 Output Total 700 / 700 2100 / 2100 3525 / 3525 Balance -130 / -130 -1180 / -1180 -2565 / -2565 Weight 200 lb 6.4 oz 198 lb 4 oz 198 lb 4.011 oz - *Routine Respiratory Exam Present: CTA bilaterally - *Routine Cardiovascular Exam Present: RRR - *Routine Extremities Exam Absent: edema Assessment and Plan (1) Intertrochanteric fracture of left femur Status: Acute Qualifiers: Encounter type: initial encounter Fracture type: closed Fracture alignment: displaced Qualified Code(s): S72.142A - Displaced intertrochanteric fracture of left femur, initial encounter for closed fracture Category: Medical Code(s): S72.142A - Displaced intertrochanteric fracture of left femur, initial encounter for closed fracture (2) Hypertension Status: Chronic Category: Medical Code(s): I10 - Essential (primary) hypertension (3) Arthritis Status: Chronic Category: Medical Code(s): M19.90 - Unspecified osteoarthritis, unspecified site (4) Hyperlipemia Status: Chronic Category: Medical Code(s): E78.5 - Hyperlipidemia, unspecified - Assessment and plan all Dx Assessment and Plan for all problems:: Continue physical and Occupational Therapy. Care management consult for acute rehab placement.
[2021-07-06 14:43] VITALS: BP 107/75; PULSE 91; RESP 16; TEMP 36.9; O2SAT 93
[2021-07-06 20:14] VITALS: BP 135/75; PULSE 96; RESP 18; TEMP 36.9; O2SAT 93
[2021-07-07 04:31] VITALS: BP 103/73; PULSE 83; RESP 16; TEMP 36.5; O2SAT 98
[2021-07-07 04:51] VITALS: BP 128/68; PULSE 86; RESP 18; TEMP 36.8; O2SAT 96
[2021-07-07 05:00] VITALS: BMI 31.8
[2021-07-07 07:34] VITALS: BP 128/63; PULSE 95; RESP 18; TEMP 37.1; O2SAT 95
--- NOTE | 2021-07-07 07:46 | HMH.ORTHPN ---
Subjective Date: 07/07/21 Time: 07:15 Principal diagnosis: S/p cephalomedullary nailing, left femur Interval history: Patient is a 71-year-old female admitted to the acute inpatient service following an uneventful cephalomedullary nailing of the left hip on 07/04/2021. Today she is postop day #3. This morning the patient is lying comfortably in bed. She reports that she has some pain in her left hip but that it is well controlled with as needed pain medication. She reports that she is eating and drinking well and denies any episodes of nausea or vomiting. She states that she has ambulated with the assistance of physical therapy using a walker and reports that this is going well. She denies chest pain, shortness of breath, palpitations, fevers, chills, rigors, or distal tingling/numbness. She denies any other symptoms or concerns at this time. PN: Obj Ex Vital signs: Temp Pulse Resp BP Pulse Ox 98.7 F 95 H 18 128/63 95 07/07/21 07:34 07/07/21 07:34 07/07/21 07:34 07/07/21 07:34 07/07/21 07:34 - Constitutional no acute distress, cooperative - Routine HEENT Exam Head: Present: normocephalic, atraumatic Eye: Present: EOMI, PERRL ENT: Present: mucous membranes moist - Routine Neck Exam Present: supple, full ROM, trachea midline. Absent: JVD, lymphadenopathy - Routine Respiratory Exam Absent: accessory muscle use, respiratory distress Comments: Symmetric chest movement, able to speak in complete sentences - Routine Cardiovascular Exam Present: RRR Comments: Normal peripheral pulses - Routine Abdominal Exam Present: soft. Absent: tenderness - Routine Extremities Exam Present: pulses intact, normal capillary refill. Absent: calf tenderness Comments: Upon examination of the lower extremities: The limb lengths are equal. Dressings present over the left hip are clean, dry, and intact. No evidence of drainage or bleeding noted. The left hip and proximal femur are mildly tender to palpation. Attempted movements of the left hip are somewhat painful. Thigh and calf are soft nontender; Homans' sign is negative. No clinical evidence of DVT noted. Posterior tibial pulse 1+; capillary refill is brisk. Sensation to light touch is grossly intact throughout. Patient is actively mobilizing the foot, ankle, and toes. - Routine Skin Exam Present: intact, warm, normal turgor. Absent: cyanosis, erythema, jaundice - Routine Neurological Exam Present: alert, oriented X3, moving all extremities, normal tone, normal speech. Absent: sensory deficit, motor deficit, altered mental status - Routine Psychiatric Exam Present: normal affect, cooperative, good judgment - Urinary Catheter Management Koehler Cath placed during this visit: no Urethral indwelling: No Progress Note: A&P (1) Intertrochanteric fracture of left femur Status: Acute (2) Hypertension Status: Chronic (3) Arthritis Status: Chronic (4) Hyperlipemia Status: Chronic Assessment and Plan for All Diagnoses:: I have discussed the clinical findings and progress with the patient. Overall she is doing well from an orthopedic standpoint can be discharged when medically appropriate. Sterile bordered gauze dressings present over the left hip are clean, dry, and intact. The patient has Dermabond Prineo dressings in place, I have given her appropriate care instructions; do not remove the Dermabond Prineo dressing. After showering, pat the incisions dry and do not apply any lotions or creams. Plan to continue PT/OT; patient may continue to mobilize weightbearing as tolerated on her left side with use of a walker and transition to a cane as she progresses. Continue DVT prophylaxis as ordered for 6 weeks postoperatively. Continue rest, ice, elevation, activity modification, and pain medication as needed. Case management team coordinating discharge planning; the patient has verbalized that she believes she will benefit from placement
--- NOTE | 2021-07-07 08:22 | HMH.ACPN2 ---
<Nhung Benavides - Last Filed: 07/07/21 08:22> Internal Medicine - PN: Subj *Date: 07/07/21 *Time: 08:22 Interval history: She is doing well and ready to move on. She states she walked to the window yesterday and sat up in a chair for about 3 hours. She is eating without difficulties. She denies chest pain and shortness of breath. Bowels are moving and she has a pure wick in place. Exam Vital signs and Labs for Last 24 Hours: Temp Pulse Resp BP Pulse Ox 98.7 F 95 H 18 128/63 95 07/07/21 07:34 07/07/21 07:34 07/07/21 07:34 07/07/21 07:34 07/07/21 07:34 I & O for Last 24 hours: Intake & Output 07/04/21 07/05/21 07/06/21 07/07/21 11:59 11:59 11:59 11:59 Intake Total 570 / 570 920 / 920 960 / 960 840 / 840 Output Total 700 / 700 2100 / 2100 3525 / 3525 600 / 600 Balance -130 / -130 -1180 / -1180 -2565 / -2565 240 / 240 Weight 200 lb 6.4 oz 198 lb 4 oz 198 lb 4.011 oz 198 lb 4.011 oz - Constitutional no acute distress - *Routine Respiratory Exam Present: CTA bilaterally (Anteriorly and posteriorly) - *Routine Cardiovascular Exam Present: RRR - *Routine Abdominal Exam Present: soft, normoactive bowel sounds. Absent: tenderness - *Routine Extremities Exam Absent: edema, calf tenderness Comments: Dressings on the left leg is clean and dry. - *Routine Neurological Exam Present: alert, oriented X3 Assessment and Plan (1) Intertrochanteric fracture of left femur Status: Acute Qualifiers: Encounter type: initial encounter Fracture type: closed Fracture alignment: displaced Qualified Code(s): S72.142A - Displaced intertrochanteric fracture of left femur, initial encounter for closed fracture Category: Medical Code(s): S72.142A - Displaced intertrochanteric fracture of left femur, initial encounter for closed fracture (2) Hypertension Status: Chronic Category: Medical Code(s): I10 - Essential (primary) hypertension (3) Arthritis Status: Chronic Category: Medical Code(s): M19.90 - Unspecified osteoarthritis, unspecified site (4) Hyperlipemia Status: Chronic Category: Medical Code(s): E78.5 - Hyperlipidemia, unspecified - Assessment and plan all Dx Assessment and Plan for all problems:: Patient is requesting ongoing rehab. Care management to assist with placement. <MarlysEllis - Last Filed: 07/07/21 17:34> Internal Medicine - PN: Subj *Date: 07/07/21 *Time: 17:33 Exam Vital signs and Labs for Last 24 Hours: Temp Pulse Resp BP Pulse Ox 97.9 F 83 18 123/49 L 94 L 07/07/21 16:00 07/07/21 16:00 07/07/21 16:00 07/07/21 16:00 07/07/21 16:00 I & O for Last 24 hours: Intake & Output 07/05/21 07/06/21 07/07/21 07/08/21 11:59 11:59 11:59 11:59 Intake Total 920 / 920 960 / 960 840 / 840 240 / 240 Output Total 2100 / 2100 3525 / 3525 600 / 600 Balance -1180 / -1180 -2565 / -2565 240 / 240 240 / 240 Weight 198 lb 4 oz 198 lb 4.011 oz 198 lb 4.011 oz Assessment and Plan (1) Intertrochanteric fracture of left femur Status: Acute Qualifiers: Encounter type: initial encounter Fracture type: closed Fracture alignment: displaced Qualified Code(s): S72.142A - Displaced intertrochanteric fracture of left femur, initial encounter for closed fracture Category: Medical Code(s): S72.142A - Displaced intertrochanteric fracture of left femur, initial encounter for closed fracture (2) Hypertension Status: Chronic Category: Medical Code(s): I10 - Essential (primary) hypertension (3) Arthritis Status: Chronic Category: Medical Code(s): M19.90 - Unspecified osteoarthritis, unspecified site (4) Hyperlipemia Status: Chronic Category: Medical Code(s): E78.5 - Hyperlipidemia, unspecified - Assessment and plan all Dx Assessment and Plan for all problems:: Patient seen and examined. Concur with above. Awaiting disposition.
--- NOTE | 2021-07-07 09:31 | SW/DCPLANNER ---
Addendum entered by Katty Centeno 07/08/21 09:22: The plan is for this patient to discharge to [facility] level of care today. COVID swab has been collected and faxed to [facility] (NEGATIVE). Addendum entered by Katty Centeno 07/07/21 14:54: Currently still waiting for authorization from patient's insurance for SNF level of care. Addendum entered by Katty Centeno 07/07/21 10:42: [facility] has stated that she can accept this patient and precert has been started. Marisa is aware that patient is medically stable for discharge. I will continue to follow up with Marisa from [facility]. Original Note: This patient admitted with hip fx and did have surgery on Tuesday 07/04. Patient stated this AM that she is interested in SNF level of care at time of discharge at [facility] or [facility] (no beds). Patient information has been faxed to [facility]. Patient is medically stable for discharge.
[2021-07-07 14:19] VITALS: BP 145/88; PULSE 91; TEMP 36.6
--- NOTE | 2021-07-07 14:19 | P.PN_ITS ---
[facility] Anesthesia Record Part II Discharge Time: 17:50 Destination: Medical Surgical Department PACU nurse assessment reviewed?: Yes Patient Condition:: Good Anesthesia Complications:: None Swallowing reflex intact?: Yes Cyanosis?: No Blood Pressure: 145/88 Pulse Rate: 91 Temperature: 98 F Mental Status: Alert & Oriented Pain level:: 0 Nausea and/or vomitting:: None Intake, IV Amount: 0
[2021-07-07 16:00] VITALS: BP 123/49; PULSE 83; RESP 18; TEMP 36.6; O2SAT 94
[2021-07-07 20:00] VITALS: BP 122/68; PULSE 91; RESP 18; TEMP 37; O2SAT 94
[2021-07-08 00:17] VITALS: RESP 16
[2021-07-08 05:00] VITALS: BMI 31.8
--- NOTE | 2021-07-08 05:49 | PC.NURSE ---
0400 Pt lying in bed. Requested pure wick for nighttime use only. Pt stated that pain is well controlled with current pain medication. Pt up to the chair and to bed this shift. Minimal use of pain medication. Voiced that it was effective in her pain control. Has call astudillo within reach and voiced 0 needs. Assessment remains unchanged from beginning of shift.
[2021-07-08 07:57] LABS: Coronavirus 19, PCR Not Detected (NotDetected); Influenza A, PCR Not Detected (NotDetected); Influenza B, PCR Not Detected (NotDetected)
[2021-07-08 08:00] VITALS: BP 117/69; PULSE 86; RESP 16; TEMP 37; O2SAT 96; O2SAT 97
--- NOTE | 2021-07-08 09:08 | HMH.ORTHPN ---
Subjective Date: 07/08/21 Time: 08:30 Principal diagnosis: S/p cephalomedullary nailing, left femur Interval history: Patient is a 71-year-old female admitted to the acute inpatient service following an uneventful cephalomedullary nailing of the left hip on 07/04/2021. Today she is postop day #4. This morning the patient is sitting comfortably in a chair at the bedside. She reports that she has some pain in her left hip but that it is well controlled with as needed pain medication. She reports that she is eating and drinking well and denies any episodes of nausea or vomiting. She states that she has ambulated with the assistance of physical therapy using a walker and reports that this is going well. She denies chest pain, shortness of breath, palpitations, fevers, chills, rigors, or distal tingling/numbness. She denies any other symptoms or concerns at this time. PN: Obj Ex Vital signs: Temp Pulse Resp BP Pulse Ox 98.6 F 91 H 16 122/68 94 L 07/07/21 20:00 07/07/21 20:00 07/08/21 00:17 07/07/21 20:00 07/07/21 20:00 - Constitutional no acute distress, cooperative - Routine HEENT Exam Head: Present: normocephalic, atraumatic Eye: Present: EOMI, PERRL ENT: Present: mucous membranes moist - Routine Neck Exam Present: supple, full ROM. Absent: JVD, lymphadenopathy - Routine Respiratory Exam Absent: accessory muscle use, respiratory distress Comments: Symmetric chest movement, able to speak complete sentences - Routine Cardiovascular Exam Present: RRR Comments: Normal peripheral pulses - Routine Abdominal Exam Present: soft. Absent: tenderness - Routine Extremities Exam Present: pulses intact, normal capillary refill. Absent: calf tenderness Comments: Upon examination of the lower extremities: The limb lengths are equal. Dressings present over the left hip are clean, dry, and intact. No evidence of drainage or bleeding noted. The left hip and proximal femur are mildly tender to palpation. Attempted movements of the left hip are somewhat painful. Thigh and calf are soft nontender; Homans' sign is negative. No clinical evidence of DVT noted. Posterior tibial pulse 1+; capillary refill is brisk. Sensation to light touch is grossly intact throughout. Patient is actively mobilizing the foot, ankle, and toes. - Routine Skin Exam Present: intact, warm, normal turgor. Absent: cyanosis, erythema, lesions, jaundice - Routine Neurological Exam Present: alert, oriented X3, CN II-XII intact, moving all extremities, normal tone, normal speech. Absent: sensory deficit, motor deficit, altered mental status - Routine Psychiatric Exam Present: normal affect, cooperative - Urinary Catheter Management Koehler Cath placed during this visit: no Urethral indwelling: No Progress Note: A&P (1) Intertrochanteric fracture of left femur Status: Acute (2) Hypertension Status: Chronic (3) Arthritis Status: Chronic (4) Hyperlipemia Status: Chronic Assessment and Plan for All Diagnoses:: I have discussed the clinical findings and progress with the patient. Overall she is doing well from an orthopedic standpoint can be discharged when medically appropriate. Sterile bordered gauze dressings present over the left hip are clean, dry, and intact. The patient has Dermabond Prineo dressings in place, I have given her appropriate care instructions; do not remove the Dermabond Prineo dressing. After showering, pat the incisions dry and do not apply any lotions or creams. Plan to continue PT/OT; patient may continue to mobilize weightbearing as tolerated on her left side with use of a walker and transition to a cane as she progresses. Continue DVT prophylaxis as ordered for 6 weeks postoperatively. Continue rest, ice, elevation, activity modification, and pain medication as needed. Case management team coordinating discharge planning; the patient is tentatively being discharged to [facility]
--- NOTE | 2021-07-08 10:17 | HMH.ACPN2 ---
<Nhung Benavides - Last Filed: 07/08/21 10:17> Internal Medicine - PN: Subj *Date: 07/08/21 *Time: 10:17 Interval history: Patient had a good day yesterday. She was able to walk to the bathroom with a walker. Her bowels are moving. She is voiding QS. She is eating without problems. She denies chest pain and shortness of breath. Exam Vital signs and Labs for Last 24 Hours: Temp Pulse Resp BP Pulse Ox 98.6 F 86 16 117/69 96 07/08/21 08:00 07/08/21 08:00 07/08/21 08:00 07/08/21 08:00 07/08/21 08:00 Laboratory Results - last 24 hr 07/08/21 07:52: SARS-CoV-2 (PCR) Not detected, Influenza A Untype (PCR) Not detected, Influenza Type B (PCR) Not detected I & O for Last 24 hours: Intake & Output 07/05/21 07/06/21 07/07/21 07/08/21 11:59 11:59 11:59 11:59 Intake Total 920 / 920 960 / 960 840 / 840 1080 / 1080 Output Total 2100 / 2100 3525 / 3525 600 / 600 300 / 300 Balance -1180 / -1180 -2565 / -2565 240 / 240 780 / 780 Weight 198 lb 4 oz 198 lb 4.011 oz 198 lb 4.011 oz 198 lb 4.011 oz - Constitutional no acute distress Comments: Sitting in chair at bedside waiting for discharge. Appears comfortable. - *Routine Respiratory Exam Present: CTA bilaterally (Anteriorly and posteriorly) - *Routine Cardiovascular Exam Present: RRR - *Routine Abdominal Exam Present: soft, normoactive bowel sounds. Absent: tenderness - *Routine Extremities Exam Absent: edema, calf tenderness - *Routine Skin Exam Present: wounds (Postop dressings clean and dry on right upper leg) - *Routine Neurological Exam Present: alert, oriented X3 Assessment and Plan (1) Intertrochanteric fracture of left femur Status: Acute Qualifiers: Encounter type: initial encounter Fracture type: closed Fracture alignment: displaced Qualified Code(s): S72.142A - Displaced intertrochanteric fracture of left femur, initial encounter for closed fracture Category: Medical Code(s): S72.142A - Displaced intertrochanteric fracture of left femur, initial encounter for closed fracture (2) Hypertension Status: Chronic Category: Medical Code(s): I10 - Essential (primary) hypertension (3) Arthritis Status: Chronic Category: Medical Code(s): M19.90 - Unspecified osteoarthritis, unspecified site (4) Hyperlipemia Status: Chronic Category: Medical Code(s): E78.5 - Hyperlipidemia, unspecified - Assessment and plan all Dx Assessment and Plan for all problems:: To be discharged to [place] for ongoing rehabilitation. <Ellis Frankel - Last Filed: 07/08/21 12:45> Internal Medicine - PN: Subj *Date: 07/08/21 *Time: 12:44 Exam Vital signs and Labs for Last 24 Hours: Temp Pulse Resp BP Pulse Ox 98.6 F 86 16 117/69 97 07/08/21 08:00 07/08/21 08:00 07/08/21 08:00 07/08/21 08:00 07/08/21 08:00 Laboratory Results - last 24 hr 07/08/21 07:52: SARS-CoV-2 (PCR) Not detected, Influenza A Untype (PCR) Not detected, Influenza Type B (PCR) Not detected I & O for Last 24 hours: Intake & Output 07/06/21 07/07/21 07/08/21 07/09/21 11:59 11:59 11:59 11:59 Intake Total 960 / 960 840 / 840 1080 / 1080 Output Total 3525 / 3525 600 / 600 300 / 300 Balance -2565 / -2565 240 / 240 780 / 780 Weight 198 lb 4.011 oz 198 lb 4.011 oz 198 lb 4.011 oz Assessment and Plan (1) Intertrochanteric fracture of left femur Status: Acute Qualifiers: Encounter type: initial encounter Fracture type: closed Fracture alignment: displaced Qualified Code(s): S72.142A - Displaced intertrochanteric fracture of left femur, initial encounter for closed fracture Category: Medical Code(s): S72.142A - Displaced intertrochanteric fracture of left femur, initial encounter for closed fracture (2) Hypertension Status: Chronic Category: Medical Code(s): I10 - Essential (primary) hypertension (3) Arthritis Status: Chronic Category: Medical Code(s): M19.90 - Un
--- NOTE | 2021-07-08 10:20 | HMH.DCSUM ---
General - General Admission date:: 07/03/21 <Ellis Frankel - 07/15/21 08:40> 07/03/21 <KennedyUrsulaNhung - 07/08/21 10:38> Discharge date: 07/08/21 <Benavides,Nhung - 07/08/21 10:38> HPI HPI: 71-year-old female with past medical history of hyperlipidemia, hypertension who is presenting to the ED after a fall from standing with left hip pain. Patient was outside, feeding her dogs when accidentally slipped on flat rocks. She did not hit her head, negative LOC. She complains of pain in her left hip/proximal femur with movement. This is a closed injury. Her vital signs were stable in route with EMS. She is neurovascularly intact distally with palpable DP/PT pulse on the left foot. She has mild swelling over the proximal left femur, she has no abdominal pain, no chest pain, no shortness of breath, she is alert and oriented x3, she denies headache, back pain, cervical spinal pain. She has no prior surgeries on her left leg. She has no pain in her right leg. States that her pain is well controlled however with movement it is worse. She has no other concerns. (Above as per ER physician) The patient was evaluated in the emergency room and was started on morphine for pain and Zofran for nausea. The x-ray of her pelvis and femur showed a left intertrochanteric femur fracture. The ER physician spoke with orthopedics and admitted the patient overnight for surgery today. The following morning, the patient only had pain with movement. She was awaiting orthopedics consult. <KennedyNhung - 07/08/21 10:38> Hospital Course Hospital Course: Patient was seen by orthopedic surgeon, Dr. Perrin, for the left intertrochanteric femur fracture after admission. On 07/04/2021 he performed a closed reduction and cephalomedullary nailing of the left femur. She tolerated this well and the following day began with physical therapy.She was followed by Dr. Perrin throughout her stay. PT/ OT were continued. Pain management was with narcotic analgesics. Discharge planning was initiated. DVT prophylaxis was ongoing and to be continued for 6 weeks postop. 02/2022 a bed was obtained at [facility] for ongoing rehab. She was able to ambulate with a walker with help and all systems were functioning. She was discharged to [facility] in stable and satisfactory condition. Meds as per medication reconciliation sheet. She will continue with PT and OT for rehab. Follow-up will be at [facility] by Dr. Frankel. <Nhung Benavides - 07/08/21 10:38> Objective Vital signs: Temp Pulse Resp BP Pulse Ox 98.6 F 86 16 117/69 97 07/08/21 08:00 07/08/21 08:00 07/08/21 08:00 07/08/21 08:00 07/08/21 08:00 <Ellis Frankel - 07/15/21 08:40> Temp Pulse Resp BP Pulse Ox 98.6 F 86 16 117/69 96 07/08/21 08:00 07/08/21 08:00 07/08/21 08:00 07/08/21 08:00 07/08/21 08:00 <Nhung Benavides - 07/08/21 10:38> Narrative: Exam Vital signs and Labs for Last 24 Hours: Temp Pulse Resp BP Pulse Ox 98.6 F 86 16 117/69 96 07/08/21 08:00 07/08/21 08:00 07/08/21 08:00 07/08/21 08:00 07/08/21 08:00 Laboratory Results - last 24 hr 07/08/21 07:52: SARS-CoV-2 (PCR) Not detected, Influenza A Untype (PCR) Not detected, Influenza Type B (PCR) Not detected I & O for Last 24 hours: Intake & Output 07/05/21 07/06/21 07/07/21 07/08/21 11:59 11:59 11:59 11:59 Intake Total 920 / 920 960 / 960 840 / 840 1080 / 1080 Output Total 2100 / 2100 3525 / 3525 600 / 600 300 / 300 Balance -1180 / -1180 -2565 / -2565 240 / 240 780 / 780 Weight 198 lb 4 oz 198 lb 4.011 oz 198 lb 4.011 oz 198 lb 4.011 oz - Constitutional no acute distress Comments: Sitting in chair at bedside waiting for discharge. Appears comfortable. - *Routine Respiratory Exam Present: CTA bilaterally (Anteriorly and posteriorly) - *Routine Cardiovascular Exam Present: RRR - *Routine Abdominal Exam Present: soft, normoa
--- NOTE | 2021-07-08 10:48 | PC.NURSE ---
REPORT CALLED TO FELIX RICHARD SPOKE WITH MEAGAN.
== END 2021-07-08 11:07 | disposition home or self-care (01) | DRG 482 ==
LOC: ER 21:20 → 2ND 22:41
PROVIDERS: Orthopaedic Surgery; Admitting Provider Family Medicine; Emergency Provider Emergency Medicine; PCP Internal Medicine; Visit Provider Family Medicine
DX: S72.142A Displaced intertrochanteric fracture of left femur, initial encounter for closed fracture (principal); I10 Essential (primary) hypertension; E78.5 Hyperlipidemia, unspecified; M19.90 Unspecified osteoarthritis, unspecified site; Z20.822 Contact with and (suspected) exposure to COVID-19
CPT/HCPCS: 27245; 36415; 51702; 71045; 73502; 73552; 73700; 76000; 80048; 80053; 81001; 85025; 86850; 94761; 96374; 96375; 97110; 97116; 97161; 97165; 99285; C1713; C1769; C9803; J0131; J2405; U0003; U0005

== ENCOUNTER → 2021-07-22 08:50 | Outpatient (CLI) | payer MEDICARE, SELFPAY ==
--- NOTE | 2021-07-22 08:55 | XR_ITS ---
FINAL REPORT CLINICAL HISTORY: s/p lt hip hailing on 07/04/2021 COMPARISON: July 03, 2021 FINDINGS: 2 views of the left hip with an AP pelvis were obtained. There is an intramedullary chasidy and compression screws securing a healed or healing fracture of the proximal left femur. There is mild narrowing of the hip joint space. IMPRESSION: Interval postoperative changes. Reviewed, Interpreted and Dictated by Pablo Feliz MD Transcribed by Tito Drummond Authenticated by Pablo Feliz MD on 07/22/2021 10:19:[address] [facility]
== END ==
PROVIDERS: PCP Internal Medicine; Visit Provider Orthopaedic Surgery
DX: S72.142A Displaced intertrochanteric fracture of left femur, initial encounter for closed fracture (principal)
CPT/HCPCS: 73502

== ENCOUNTER → 2021-08-19 09:17 | Outpatient (CLI) | payer MEDICARE, SELFPAY ==
--- NOTE | 2021-08-19 09:23 | XR_ITS ---
FINAL REPORT CLINICAL HISTORY: follow up hip replacement COMPARISON: 07/22/2021 FINDINGS: LEFT HIP Five views of the left hip were obtained. There are postoperative changes from ORIF of an intertrochanteric fracture. Some interval healing is identified. No other acute fracture is seen. The hardware is intact. There is no acute soft tissue abnormality. IMPRESSION: Postsurgical changes as above. Reviewed, Interpreted and Dictated by Molly Gamble MD Transcribed by Nhung Garcia Authenticated by Molly Gamble MD on 08/19/2021 11:53:36 AM [facility] [place]
== END ==
PROVIDERS: PCP Internal Medicine; Visit Provider Orthopaedic Surgery
DX: S72.142A Displaced intertrochanteric fracture of left femur, initial encounter for closed fracture (principal)
CPT/HCPCS: 73502

== ENCOUNTER → 2021-09-03 12:26 | Outpatient (CLI) | payer MEDICARE, SELFPAY ==
[2021-09-03 12:56] LABS: Basophils # 0.1 K/mm3 (0-0.2); Basophils % 0.9 % (0.1-2.0); Eosinophils # 0.1 K/mm3 (0.0-0.4); Eosinophils % 1.3 % (0.1-12.0); Hematocrit 43.8 % (37.0-47.0); Lymphocytes # 1.5 K/mm3 (0.7-4.5); Lymphocytes % 23.5 % (10-50); Mean Corpuscular Hemoglobin 29.8 pg (27.0-31.2); Mean Corpuscular Volume 93.1 fl (81-99); Mean Platelet Volume 9.2 fl (7.4-10.4); Monocytes # 0.6 K/mm3 (0.1-1.0); Monocytes % 8.7 % (1.7-9.3); Neutrophils # 4.3 K/mm3 (1.8-7.8); Neutrophils % 65.6 % (37.0-80.0); Platelet Count 340 K/mm3 (142-424); Red Blood Count 4.71 M/mm3 (4.20-5.40); Red Cell Distribution Width 12.9 % (11.5-17.5); White Blood Count 6.5 K/mm3 (4.8-10.8)
[2021-09-03 13:32] LABS: Anion Gap 10.4 mEq/L (5-15); Blood Urea Nitrogen 15 mg/dl (7-17); Calcium 9.9 mg/dl (8.4-10.2); Carbon Dioxide 30 mmol/L (22.0-30.0); Chloride 102 mmol/L (98-107); Estimated Glomerular Filt Rate 82 ml/min (>60); GFR (African American) 100 ML/MIN (>60); Glucose 99 mg/dl (74-100); Potassium 4.4 mmoL/L (3.5-5.1); Sodium 138 mmol/L (136-145)
== END ==
PROVIDERS: PCP Internal Medicine; Visit Provider Internal Medicine
DX: I10 Essential (primary) hypertension (principal); M15.0 Primary generalized (osteo)arthritis; G60.9 Hereditary and idiopathic neuropathy, unspecified; Z86.2 Personal history of diseases of the blood and blood-forming organs and certain disorders involving the immune mechanism
CPT/HCPCS: 80048; 85025

== ENCOUNTER → 2021-09-30 09:31 | Outpatient (CLI) | payer MEDICARE, SELFPAY ==
--- NOTE | 2021-09-30 09:35 | XR_ITS ---
FINAL REPORT CLINICAL HISTORY: s/p lt hip..PAIN COMPARISON: August 19, 2021 FINDINGS: 2 views of the left hip with an AP pelvis were obtained. There is a chronic left inter trochanteric fracture with changes of ORIF. There are mild degenerative changes of the left hip. There is moderate to severe degenerative change of the left knee. IMPRESSION: Postoperative and degenerative changes. Reviewed, Interpreted and Dictated by Jayy Santos III, MD Transcribed by Tito Drummond Authenticated and [facility]
== END ==
PROVIDERS: PCP Internal Medicine; Visit Provider Physician Assistant Surgical
DX: Z09 Encounter for follow-up examination after completed treatment for conditions other than malignant neoplasm (principal); M25.552 Pain in left hip
CPT/HCPCS: 73502

== ENCOUNTER → 2021-12-16 09:11 | Outpatient (CLI) | payer MEDICARE, SELFPAY ==
[2021-12-16 15:27] LABS: Basophils % 0.5 % (0.1-2.0); Eosinophils # 0.2 K/mm3 (0.0-0.4); Eosinophils % 2.2 % (0.1-12.0); Hemoglobin 14.7 g/dL (12.2-16.2); Lymphocytes # 1.7 K/mm3 (0.7-4.5); Lymphocytes % 24.5 % (10-50); Mean Corpuscular HGB Conc 31.9 g/dL (31.8-35.4); Mean Corpuscular Hemoglobin 29.3 pg (27.0-31.2); Mean Corpuscular Volume 91.9 fl (81-99); Mean Platelet Volume 10.7 fl (7.4-10.4); Monocytes # 0.7 K/mm3 (0.1-1.0); Monocytes % 10.4 % (1.7-9.3); Neutrophils # 4.2 K/mm3 (1.8-7.8); Neutrophils % 62.3 % (37.0-80.0); Platelet Count 351 K/mm3 (142-424); Red Blood Count 5.01 M/mm3 (4.20-5.40); Red Cell Distribution Width 14.1 % (11.5-17.5); White Blood Count 6.8 K/mm3 (4.8-10.8)
[2021-12-16 16:37] LABS: Chloride 101 mmol/L (98-107); Sodium 137 mmol/L (136-145)
[2021-12-16 16:40] LABS: Alanine Aminotransferase 20 U/L (12-78); Albumin Level 3.8 g/dl (3.5-5.0); Albumin/Globulin Ratio 1.4 (1.1-1.8); Alkaline Phosphatase 147 U/L (38-126); Aspartate Amino Transferase 28 U/L (14-36); Bilirubin,Total 0.7 mg/dl (0.2-1.3); Blood Urea Nitrogen 19 mg/dl (7-17); Carbon Dioxide 27 mmol/L (22.0-30.0); Cholesterol 172 mg/dl (140-200); Estimated Glomerular Filt Rate 82 ml/min (>60); GFR (African American) 100 ML/MIN (>60); Globulin 2.7 g/dL (1.3-3.2); Glucose 76 mg/dl (74-100); Total Protein,Serum 6.5 g/dl (6.3-8.2); Triglycerides 120 mg/dl (30-150); VLDL Cholesterol 24 mg/dL (0-40)
[2021-12-16 16:41] LABS: Chol/HDL Ratio 3.7 (1-3.5); HDL Cholesterol 46 mg/dl (40-60)
[2021-12-16 16:52] LABS: Direct LDL Cholesterol 90.48 mg/dL (100-129)
== END ==
PROVIDERS: PCP Internal Medicine; Visit Provider Internal Medicine
DX: I10 Essential (primary) hypertension (principal); E78.5 Hyperlipidemia, unspecified; D50.9 Iron deficiency anemia, unspecified; G60.9 Hereditary and idiopathic neuropathy, unspecified
CPT/HCPCS: 80053; 80061; 85025

== ENCOUNTER → 2021-12-23 08:57 | Outpatient (CLI) | payer MEDICARE, SELFPAY ==
--- NOTE | 2021-12-23 09:03 | XR_ITS ---
FINAL REPORT CLINICAL HISTORY: s/p hip fracture, f/u COMPARISON: September 30, 2021 FINDINGS: LEFT HIP Two views of the left hip demonstrate no acute fracture or dislocation. There is a healed left intertrochanteric fracture. No hardware is unremarkable. There are degenerative changes of the knee. The visualized bony structures are well aligned. No soft tissue abnormality is seen. IMPRESSION: Healed left intertrochanteric fracture. Reviewed, Interpreted and Dictated by Doug Abdullahi MD Transcribed by Brianda Bal Authenticated and [facility]
== END ==
PROVIDERS: PCP Internal Medicine; Visit Provider Orthopaedic Surgery
DX: S72.142A Displaced intertrochanteric fracture of left femur, initial encounter for closed fracture (principal)
CPT/HCPCS: 73502

== ENCOUNTER 2022-03-27 03:58 | Emergency (ER) | payer MEDICARE, SELFPAY ==
[2022-03-27] VITALS (10 sets, daily range): BP systolic 111–155; BP diastolic 61–85; PULSE 91–109; RESP 13–26; TEMP 36.6–36.7; O2SAT 94–97; BMI 32.5
--- NOTE | 2022-03-27 04:04 | XR_ITS ---
PROCEDURE INFORMATION: Exam: XR Chest Exam date and time: 03/27/2022 4:31 AM Age: 71 years old Clinical indication: Sternal or substernal pain; Additional info: Chest pain TECHNIQUE: Imaging protocol: Radiologic exam of the chest. Views: 1 view. COMPARISON: CR XR CHEST PORTABLE 07/03/2021 9:42 PM FINDINGS: Lungs: Marked elevation of the left hemidiaphragm with associated subsegmental atelectasis. Pleural spaces: No significant pleural effusion. Heart/Mediastinum: Hiatal hernia. Bones/joints: Degenerative change. IMPRESSION: 1. Marked elevation of the left hemidiaphragm with associated subsegmental atelectasis. 2. Hiatal hernia.
--- NOTE | 2022-03-27 04:05 | HMH.EDABDPAI ---
Discharge Plan Disposition Patient Disposition: Home, Self-Care Condition: Good Prescriptions Prescriptions: No Action hydrochlorothiazide 12.5 MG tablet 25 mg PO DAILY pravastatin 40 MG tablet 40 mg PO DAILY pantoprazole 40 MG tablet,delayed release (DR/EC) 40 mg PO DAILY lisinopril 2.5 MG tablet 2.5 mg PO DAILY Referrals Follow up/Referrals: Damien Rodriguez MD [Primary Care Provider] - See instructions Activity Restrictions/Add. Instructions Additional Instructions/Restrictions: Follow-up with your primary care provider regarding abnormal labs today and following repeat labs to ensure you do not need supplementation for electrolyte abnormalities or treatment for potential diabetes. Be sure to stay hydrated. Follow-up with surgery at , as discussed, for discussion of surgical correction of her hiatal hernia. If you have any other concerning signs or symptoms, return to the ED for further evaluation Clinical Impressions Clinical Impression: Esophageal hiatal hernia, Acute hypokalemia, Abdominal pain, epigastric Instructions Patient Instructions: DI for Hiatal Hernia, DI for Peptic Ulcer, DI for Epigastric Pain Print Language Print Language: Kenyan Discharge ED Provider: Antonio Ferguson Abdominal Pain HPI <Ani Bailon MD - Last Filed: 03/27/22 08:23> General Chief Complaint: Abdominal Pain Stated Complaint: Cough, fever, chest heaviness Time Seen by Provider: 03/27/22 04:06 Mode of Arrival: Ambulatory Source of Information: Patient Limitations: No Limitations History of Present Illness HPI narrative: Neha is a 71 yo female w/ PMH for hiatal hernia and GERD presenting to the ED for epigastric pain. Patient reports symptoms onset 03/24. Patient reports chest tightness constant, radiates into her upper chest and shoulders. Patient attempted to take peptobismol with minimal relief. Symptoms exacerbated by laying flat. She denies any LE swelling/pain. No hx of blood clots. No blood thinners. No hx of [place] or heart disease. No fevers or other infectious sx. Patient evaluated by Dr. Yulia DASILVA GI who recommended operative management for hiatal hernia. complaint: abdominal pain (epigastric pain.) Onset (ago): day(s) Consistency: constant Location: epigastric Severity: severe Quality: other (tightness) Radiation: chest Relieving factors: nothing Exacerbating factors: other (lying flat) Associated symptoms: denies other symptoms Related Data Home Medications Medication Instructions Recorded Confirmed hydrochlorothiazide 12.5 mg tablet 25 mg PO DAILY Fluid 02/18/19 12/23/21 lisinopril 2.5 mg tablet 2.5 mg PO DAILY Hypertension 07/04/21 12/23/21 pantoprazole 40 mg tablet,delayed 40 mg PO DAILY GERD 07/04/21 12/23/21 release pravastatin 40 mg tablet 40 mg PO DAILY Cholesterol 07/04/21 12/23/21 Allergies Allergy/AdvReac Type Severity Reaction Status Date / Time No Known Allergies Allergy Unverified 12/23/21 09:55 [facility] <Ani Bailon MD - Last Filed: 03/27/22 08:23> [facility] Disclaimer: The information contained in this section may have been updated after the patient was seen, as this information can be updated by other users. Social History Smoking Status: Never smoker alcohol intake: never substance use type: denies use current occupational status: retired Travel in the last 8 weeks: None household members: none housing: house current occupation: school bus aide current occupational exposures/hazards: No caffeine: Yes <Ani Bailon MD - Last Filed: 03/27/22 08:23> ROS Obtained: Yes All systems reviewed & no additional complaints except as documented Physical Exam <Ani Bailon MD - Last Filed: 03/27/22 08:23> General General appearance: alert and in no apparent distress Head Head exam: atraumatic and normal inspection Eye Eye exam: Present normal appearance and EOMI ENT ENT exam: Present normal
--- NOTE | 2022-03-27 04:14 | ECG_ITS ---
APPROVED REPORT Exam: Resting ECG HR:107 bpm ECG Measurements Heart Rate 107 AXES MN 175 P 56 QRSd 98 QRS 43 QT 357 T 62 QTc 420 Conclusion SINUS TACHYCARDIA Old inferior Q waves and old anteroseptal changes ABNORMAL ECG UNCONFIRMED REPORT Electronically signed by : Otto Ball MD 03/27/2022 08:48:12
--- NOTE | 2022-03-27 04:20 | PC.NURSE ---
RAD At for CXR
--- NOTE | 2022-03-27 04:24 | PC.NURSE ---
Pt advises she feels worse RN notified.
[2022-03-27 04:26] LABS: Coronavirus 19, PCR Not Detected (NotDetected); Influenza A, PCR Not Detected (NotDetected); Influenza B, PCR Not Detected (NotDetected)
[2022-03-27 04:28] LABS: Basophils # 0.1 K/mm3 (0-0.2); Basophils % 0.4 % (0.1-2.0); Eosinophils % 0.2 % (0.1-12.0); Hematocrit 52.5 % (37.0-47.0); Hemoglobin 16.9 g/dL (12.2-16.2); Lymphocytes # 0.7 K/mm3 (0.7-4.5); Lymphocytes % 6.4 % (10-50); Mean Corpuscular HGB Conc 32.2 g/dL (31.8-35.4); Mean Corpuscular Hemoglobin 29.7 pg (27.0-31.2); Mean Corpuscular Volume 92.4 fl (81-99); Mean Platelet Volume 8.6 fl (7.4-10.4); Monocytes # 0.4 K/mm3 (0.1-1.0); Monocytes % 3.9 % (1.7-9.3); Neutrophils # 9.7 K/mm3 (1.8-7.8); Neutrophils % 89.1 % (37.0-80.0); Platelet Count 341 K/mm3 (142-424); Red Blood Count 5.69 M/mm3 (4.20-5.40); Red Cell Distribution Width 12.9 % (11.5-17.5); White Blood Count 10.9 K/mm3 (4.8-10.8)
[2022-03-27 04:32] LABS: MANUAL DIFFERENTIAL MANUAL DIFFERENTIAL (MANUAL DIFF)
[2022-03-27 04:33] LABS: Chloride 97 mmol/L (98-107); Sodium 139 mmol/L (136-145)
[2022-03-27 04:36] LABS: Alanine Aminotransferase 37 U/L (12-78); Albumin Level 4.4 g/dl (3.5-5.0); Albumin/Globulin Ratio 1.4 (1.1-1.8); Alkaline Phosphatase 141 U/L (38-126); Anion Gap 17.8 mEq/L (5-15); Aspartate Amino Transferase 35 U/L (14-36); Bilirubin,Total 0.6 mg/dl (0.2-1.3); Blood Urea Nitrogen 20 mg/dl (7-17); Carbon Dioxide 27 mmol/L (22.0-30.0); Creatinine Clearance Estimated 70 mL/min (50-200); Estimated Glomerular Filt Rate 71 ml/min (>60); GFR (African American) 86 ML/MIN (>60); Globulin 3.2 g/dL (1.3-3.2); Total Protein,Serum 7.6 g/dl (6.3-8.2)
[2022-03-27 04:37] LABS: Calcium 9.2 mg/dl (8.4-10.2); Glucose 227 mg/dl (74-100); Lipase 76 U/L (23-300)
[2022-03-27 04:41] LABS: Potassium 2.8 mmoL/L (3.5-5.1)
[2022-03-27 04:48] LABS: Troponin I < 0.01 ng/ml (0.00-0.034)
[2022-03-27 05:13] LABS: Acetone, Serum (Rapid) None Detected (None Detect)
--- NOTE | 2022-03-27 05:13 | PC.NURSE ---
after 3rd nitro, pain has decreased from 9 to 5. MD aware.
[2022-03-27 05:22] LABS: ABG Base Excess -4.6 mmol/L (-2.4-2.3); ABG HCO3 19.6 mmhg (22.0-26.0); ABG Oxygen Saturation 94 % (90-100); ABG PH 7.43 mmol/L (7.35-7.45); ABG PO2 67.5 mmhg (80-100); ABG TCO2 20.6 mmhg (23-27)
[2022-03-27 05:24] LABS: Allen's Test Acceptable; Oxygen ra %; Source Right Radial
--- NOTE | 2022-03-27 05:27 | PC.NURSE ---
Dr. Bailon at BS updating pt on POC
[2022-03-27 06:06] LABS: Lymphocytes % 8 % (10-50); Neutrophils % 92 % (42-76); Total Cells Counted 100
[2022-03-27 06:07] LABS: Platelet Estimate Normal; RBC Morphology Normal
--- NOTE | 2022-03-27 07:29 | CT_ITS ---
FINAL REPORT CLINICAL HISTORY: large hiatal hernia w/ left della dilation FINDINGS: CT OF THE ABDOMEN AND PELVIS WITH CONTRAST Axial CT images of the abdomen and pelvis were obtained after the administration of intravenous contrast. Coronal reformatted images were also obtained and reviewed.This study was performed with techniques to keep radiation doses as low as reasonably achievable (ALARA). Individualized dose reduction techniques using automated exposure control or adjustment of mA and/or kV according to the patient's size were employed. Abdomen: There is a large hiatal hernia. The intrathoracic stomach is air and fluid-filled and distended. There is a nondistended portion of transverse colon in the hiatal hernia. There is non compressive bibasilar atelectasis. The heart is normal in size. The liver has an unremarkable appearance. Postoperative changes are seen from cholecystectomy. There is mild biliary duct dilatation consistent with post cholecystectomy change. The spleen is unremarkable. No adrenal mass is present. The pancreas has an unremarkable appearance. There are presumed bilateral renal parapelvic cysts. There is a 14 mm cyst in the inferior pole the right kidney. The aorta is normal in caliber. There is no free fluid or adenopathy. There are multiple fluid-filled large and small bowel loops that are nonspecific. Enteritis cannot be excluded. There is a small umbilical hernia containing fat. Pelvis: The appendix is normal. The urinary bladder is unremarkable. No inflammatory process is seen. There is no evidence of mass or adenopathy. There is a calcification in the posterior aspect of the uterus that may represent a small fibroid. There is several sigmoid colon diverticulum. Postoperative changes are seen in the left proximal femur. IMPRESSION: Distended and air and fluid-filled intrathoracic stomach within a large hiatal hernia. Nondilated portion of transverse colon within the hiatal hernia. Multiple fluid-filled large and small bowel loops are nonspecific. Enteritis cannot be excluded. Reviewed, Interpreted and Dictated by Jayy Santos III, MD Transcribed by Tito Drummond Authenticated and [facility][1]
--- NOTE | 2022-03-27 07:59 | PC.NURSE ---
Pt back from CT
[2022-03-27 08:16] LABS: Troponin I < 0.01 ng/ml (0.00-0.034)
--- NOTE | 2022-03-27 08:35 | PC.NURSE ---
DR. SCOTT SPEAKING WITH PT AND FAMILY
== END 2022-03-27 09:00 | disposition home or self-care (01) ==
PROVIDERS: Student in an Organized Health Care Education/Training Program; Emergency Provider Emergency Medicine; PCP Internal Medicine
DX: R07.89 Other chest pain (principal); R10.13 Epigastric pain; E87.6 Hypokalemia; K44.9 Diaphragmatic hernia without obstruction or gangrene; Z20.822 Contact with and (suspected) exposure to COVID-19
CPT/HCPCS: 36415; 71045; 74177; 80053; 82009; 82803; 83690; 84484; 85007; 85025; 93005; 96361; 96374; 99285; C9803; Q9967; U0003; U0005

== ENCOUNTER → 2022-04-01 12:27 | Outpatient (CLI) | payer MEDICARE, SELFPAY ==
[2022-04-01 14:22] LABS: Chloride 100 mmol/L (98-107); Potassium 4.2 mmoL/L (3.5-5.1); Sodium 135 mmol/L (136-145)
[2022-04-01 14:25] LABS: Anion Gap 12.2 mEq/L (5-15); Blood Urea Nitrogen 20 mg/dl (7-17); Calcium 8.7 mg/dl (8.4-10.2); Carbon Dioxide 27 mmol/L (22.0-30.0); Estimated Glomerular Filt Rate 71 ml/min (>60); GFR (African American) 86 ML/MIN (>60); Glucose 98 mg/dl (74-100)
== END ==
PROVIDERS: PCP Internal Medicine; Visit Provider Internal Medicine
DX: I10 Essential (primary) hypertension (principal); E87.6 Hypokalemia; K44.9 Diaphragmatic hernia without obstruction or gangrene
CPT/HCPCS: 80048

== ENCOUNTER → 2022-06-15 09:57 | Outpatient (CLI) | payer MEDICARE, SELFPAY ==
[2022-06-15 10:37] LABS: Basophils # 0.1 K/mm3 (0-0.2); Eosinophils # 0.1 K/mm3 (0.0-0.4); Eosinophils % 1.7 % (0.1-12.0); Hematocrit 48.1 % (37.0-47.0); Hemoglobin 15.2 g/dL (12.2-16.2); Lymphocytes # 1.7 K/mm3 (0.7-4.5); Lymphocytes % 25.2 % (10-50); Mean Corpuscular HGB Conc 31.6 g/dL (31.8-35.4); Mean Corpuscular Hemoglobin 28.9 pg (27.0-31.2); Mean Corpuscular Volume 91.5 fl (81-99); Mean Platelet Volume 8.4 fl (7.4-10.4); Monocytes # 0.5 K/mm3 (0.1-1.0); Monocytes % 6.7 % (1.7-9.3); Neutrophils # 4.4 K/mm3 (1.8-7.8); Neutrophils % 65.5 % (37.0-80.0); Platelet Count 304 K/mm3 (142-424); Red Blood Count 5.26 M/mm3 (4.20-5.40); Red Cell Distribution Width 13.1 % (11.5-17.5); White Blood Count 6.6 K/mm3 (4.8-10.8)
[2022-06-15 10:59] LABS: Alanine Aminotransferase 21 U/L (12-78); Albumin Level 4.2 g/dl (3.5-5.0); Albumin/Globulin Ratio 1.6 (1.1-1.8); Alkaline Phosphatase 122 U/L (38-126); Anion Gap 10.6 mEq/L (5-15); Aspartate Amino Transferase 26 U/L (14-36); Bilirubin,Total 0.7 mg/dl (0.2-1.3); Blood Urea Nitrogen 20 mg/dl (7-17); Calcium 9.4 mg/dl (8.4-10.2); Carbon Dioxide 30 mmol/L (22.0-30.0); Chloride 103 mmol/L (98-107); Chol/HDL Ratio 3.4 (1-3.5); Cholesterol 171 mg/dl (140-200); Estimated Glomerular Filt Rate 82 ml/min (>60); GFR (African American) 100 ML/MIN (>60); Globulin 2.7 g/dL (1.3-3.2); Glucose 104 mg/dl (74-100); HDL Cholesterol 51 mg/dl (40-60); Potassium 4.6 mmoL/L (3.5-5.1); Sodium 139 mmol/L (136-145); Total Protein,Serum 6.9 g/dl (6.3-8.2); Triglycerides 125 mg/dl (30-150); VLDL Cholesterol 25 mg/dL (0-40)
[2022-06-15 11:10] LABS: Direct LDL Cholesterol 95.12 mg/dL (100-129)
== END ==
PROVIDERS: PCP Internal Medicine; Visit Provider Internal Medicine
DX: I10 Essential (primary) hypertension (principal); E78.5 Hyperlipidemia, unspecified; M15.0 Primary generalized (osteo)arthritis
CPT/HCPCS: 36415; 80053; 80061; 85025

== ENCOUNTER → 2022-12-15 12:15 | Outpatient (CLI) | payer MEDICARE, SELFPAY ==
[2022-12-15 13:06] LABS: Basophils % 0.5 % (0.1-2.0); Eosinophils # 0.1 K/mm3 (0.0-0.4); Eosinophils % 1.5 % (0.1-12.0); Hematocrit 45.5 % (37.0-47.0); Hemoglobin 14.1 g/dL (12.2-16.2); Lymphocytes # 1.5 K/mm3 (0.7-4.5); Lymphocytes % 24.7 % (10-50); Mean Corpuscular HGB Conc 31.1 g/dL (31.8-35.4); Mean Corpuscular Hemoglobin 28.7 pg (27.0-31.2); Mean Corpuscular Volume 92.2 fl (81-99); Mean Platelet Volume 9.7 fl (7.4-10.4); Monocytes # 0.5 K/mm3 (0.1-1.0); Monocytes % 8.4 % (1.7-9.3); Neutrophils # 4.1 K/mm3 (1.8-7.8); Neutrophils % 64.9 % (37.0-80.0); Platelet Count 312 K/mm3 (142-424); Red Blood Count 4.93 M/mm3 (4.20-5.40); Red Cell Distribution Width 13.7 % (11.5-17.5); White Blood Count 6.3 K/mm3 (4.8-10.8)
[2022-12-15 13:54] LABS: Chloride 106 mmol/L (98-107); Potassium 4.3 mmoL/L (3.5-5.1)
[2022-12-15 13:56] LABS: Alanine Aminotransferase 19 U/L (12-78); Aspartate Amino Transferase 26 U/L (14-36); Blood Urea Nitrogen 18 mg/dl (7-17); Estimated Glomerular Filt Rate 82 ml/min (>60); GFR (African American) 100 ML/MIN (>60)
[2022-12-15 13:57] LABS: Albumin Level 3.6 g/dl (3.5-5.0); Albumin/Globulin Ratio 1.3 (1.1-1.8); Alkaline Phosphatase 104 U/L (38-126); Bilirubin,Total 0.5 mg/dl (0.2-1.3); Calcium 9.2 mg/dl (8.4-10.2); Carbon Dioxide 25 mmol/L (22.0-30.0); Chol/HDL Ratio 3.8 (1-3.5); Cholesterol 197 mg/dl (140-200); Globulin 2.7 g/dL (1.3-3.2); Glucose 91 mg/dl (74-100); HDL Cholesterol 52 mg/dl (40-60); Total Protein,Serum 6.3 g/dl (6.3-8.2); Triglycerides 108 mg/dl (30-150); VLDL Cholesterol 22 mg/dL (0-40)
[2022-12-15 14:08] LABS: Direct LDL Cholesterol 104.69 mg/dL (100-129)
[2022-12-15 14:26] LABS: Anion Gap 13.3 mEq/L (5-15); Sodium 140 mmol/L (136-145)
== END ==
PROVIDERS: PCP Internal Medicine; Visit Provider Internal Medicine
DX: I10 Essential (primary) hypertension (principal); E78.5 Hyperlipidemia, unspecified; D50.9 Iron deficiency anemia, unspecified; G60.9 Hereditary and idiopathic neuropathy, unspecified; M15.0 Primary generalized (osteo)arthritis; Z87.19 Personal history of other diseases of the digestive system
CPT/HCPCS: 80053; 80061; 85025

== ENCOUNTER 2023-06-15 11:16 | Outpatient (CLI) | payer MEDICARE, SELFPAY ==
[2023-06-15 12:19] LABS: Alanine Aminotransferase 20 U/L (12-78); Albumin/Globulin Ratio 1.4 (1.1-1.8); Alkaline Phosphatase 114 U/L (38-126); Anion Gap 10.7 mEq/L (5-15); Aspartate Amino Transferase 27 U/L (14-36); Bilirubin,Total 0.5 mg/dl (0.2-1.3); Blood Urea Nitrogen 20 mg/dl (7-17); Calcium 9.8 mg/dl (8.4-10.2); Carbon Dioxide 29 mmol/L (22.0-30.0); Chloride 106 mmol/L (98-107); Chol/HDL Ratio 3.5 (1-3.5); Cholesterol 191 mg/dl (140-200); Estimated Glomerular Filt Rate 82 ml/min (>60); GFR (African American) 99 ML/MIN (>60); Globulin 2.8 g/dL (1.3-3.2); Glucose 90 mg/dl (74-100); HDL Cholesterol 54 mg/dl (40-60); Potassium 4.7 mmoL/L (3.5-5.1); Sodium 141 mmol/L (136-145); Total Protein,Serum 6.8 g/dl (6.3-8.2); Triglycerides 132 mg/dl (30-150); VLDL Cholesterol 26 mg/dL (0-40)
[2023-06-15 12:30] LABS: Direct LDL Cholesterol 89.29 mg/dL (100-129)
== END 2023-06-15 23:59 ==
LOC: LAB.DROPOF 11:17
PROVIDERS: PCP Internal Medicine; Visit Provider Internal Medicine
DX: I10 Essential (primary) hypertension (principal); E78.5 Hyperlipidemia, unspecified; G60.9 Hereditary and idiopathic neuropathy, unspecified; M15.0 Primary generalized (osteo)arthritis; Z86.2 Personal history of diseases of the blood and blood-forming organs and certain disorders involving the immune mechanism; K21.9 Gastro-esophageal reflux disease without esophagitis; Z68.29 Body mass index [BMI] 29.0-29.9, adult
CPT/HCPCS: 80053; 80061

== ENCOUNTER 2023-11-15 12:02 | Outpatient (CLI) | payer MEDICARE, SELFPAY ==
--- NOTE | 2023-11-15 12:06 | XR_ITS ---
FINAL REPORT TECHNIQUE: Chest PA & Lateral CLINICAL HISTORY: Chest pain COMPARISON: 03/27/2022 FINDINGS: 2 views of the chest were performed. The heart size is normal. The mediastinum is within normal limits. There are new surgical clips adjacent to the gastroesophageal junction when compared with the prior film. This may have been secondary to repair of a hiatal hernia. There is no acute cardiopulmonary process. There are no pleural effusions. There is no pneumothorax. The bony thorax appears intact. IMPRESSION: No acute cardiopulmonary process. Reviewed, Interpreted and Dictated by Pablo Feliz MD Transcribed by Lina Hubbard Authenticated and [facility]
[2023-11-15 12:13] LABS: Basophils # 0.1 K/mm3 (0-0.2); Basophils % 0.8 % (0.1-2.0); Eosinophils # 0.1 K/mm3 (0.0-0.4); Eosinophils % 1.7 % (0.1-12.0); Hematocrit 48.4 % (37.0-47.0); Lymphocytes # 1.6 K/mm3 (0.7-4.5); Lymphocytes % 27.4 % (10-50); Mean Corpuscular HGB Conc 30.9 g/dL (31.8-35.4); Mean Corpuscular Hemoglobin 29.5 pg (27.0-31.2); Mean Corpuscular Volume 95.5 fl (81-99); Mean Platelet Volume 8.4 fl (7.4-10.4); Monocytes # 0.5 K/mm3 (0.1-1.0); Monocytes % 8.3 % (1.7-9.3); Neutrophils # 3.7 K/mm3 (1.8-7.8); Neutrophils % 61.7 % (37.0-80.0); Platelet Count 331 K/mm3 (142-424); Red Blood Count 5.07 M/mm3 (4.20-5.40); Red Cell Distribution Width 13.4 % (11.5-17.5)
[2023-11-15 12:19] LABS: Chloride 106 mmol/L (98-107)
[2023-11-15 12:20] LABS: Potassium 4.9 mmoL/L (3.5-5.1); Sodium 138 mmol/L (136-145)
[2023-11-15 12:22] LABS: Blood Urea Nitrogen 18 mg/dl (7-17); Estimated Glomerular Filt Rate 54 ml/min (>60); GFR (African American) 66 ML/MIN (>60)
[2023-11-15 12:23] LABS: Anion Gap 8.9 mEq/L (5-15); Calcium 9.7 mg/dl (8.4-10.2); Carbon Dioxide 28 mmol/L (22.0-30.0); Glucose 104 mg/dl (74-100)
[2023-11-15 12:37] LABS: Troponin I < 0.01 ng/ml (0.00-0.034)
== END 2023-11-15 23:59 | disposition home or self-care (01) ==
LOC: LAB.DROPOF 12:03
PROVIDERS: PCP Internal Medicine; Visit Provider Internal Medicine
DX: R07.9 Chest pain, unspecified (principal); I10 Essential (primary) hypertension
CPT/HCPCS: 71046; 80048; 84484; 85025

== ENCOUNTER 2024-07-13 14:56 | Outpatient (CLI) | payer MEDICARE, SELFPAY ==
[2024-07-13 13:36] LABS: Basophils % 0.4 % (0.1-2.0); Eosinophils # 0.1 K/mm3 (0.0-0.4); Eosinophils % 1.9 % (0.1-12.0); Hematocrit 44.6 % (37.0-47.0); Hemoglobin 14.2 g/dL (12.2-16.2); Lymphocytes # 1.6 K/mm3 (0.7-4.5); Lymphocytes % 23.3 % (10-50); Mean Corpuscular HGB Conc 31.8 g/dL (31.8-35.4); Mean Corpuscular Hemoglobin 28.7 pg (27.0-31.2); Mean Corpuscular Volume 90.1 fl (81-99); Mean Platelet Volume 10.5 fl (7.4-10.4); Monocytes # 0.6 K/mm3 (0.1-1.0); Monocytes % 9.2 % (1.7-9.3); Neutrophils # 4.5 K/mm3 (1.8-7.8); Neutrophils % 65.1 % (37.0-80.0); Nucleated Red Blood Cells # 0 10^3/uL; Nucleated Red Blood Cells % 0 %; Platelet Count 293 K/mm3 (142-424); Red Blood Count 4.95 M/mm3 (4.20-5.40); Red Cell Distribution Width 13.1 % (11.5-17.5); Red Cell Distribution Width-SD 42.9 fL; White Blood Count 6.9 K/mm3 (4.8-10.8)
[2024-07-13 14:11] LABS: Alanine Aminotransferase 20 U/L (12-78); Albumin Level 3.7 g/dl (3.5-5.0); Albumin/Globulin Ratio 1.2 (1.1-1.8); Alkaline Phosphatase 128 U/L (38-126); Anion Gap 9.2 mEq/L (5-15); Aspartate Amino Transferase 29 U/L (14-36); Bilirubin,Total 0.8 mg/dl (0.2-1.3); Blood Urea Nitrogen 20 mg/dl (7-17); Calcium 9.4 mg/dl (8.4-10.2); Carbon Dioxide 28 mmol/L (22.0-30.0); Chloride 104 mmol/L (98-107); Chol/HDL Ratio 3.4 (1-3.5); Cholesterol 182 mg/dl (140-200); Estimated Glomerular Filt Rate 82 ml/min (>60); GFR (African American) 99 ML/MIN (>60); Globulin 3.1 g/dL (1.3-3.2); Glucose 86 mg/dl (74-100); HDL Cholesterol 53 mg/dl (40-60); Potassium 4.2 mmoL/L (3.5-5.1); Sodium 137 mmol/L (136-145); Total Protein,Serum 6.8 g/dl (6.3-8.2); Triglycerides 122 mg/dl (30-150); VLDL Cholesterol 24 mg/dL (0-40)
[2024-07-13 14:22] LABS: Direct LDL Cholesterol 87.66 mg/dL (100-129)
== END 2024-07-13 23:59 | disposition home or self-care (01) ==
LOC: LAB.DROPOF 14:56
PROVIDERS: PCP Internal Medicine; Visit Provider Internal Medicine
DX: I10 Essential (primary) hypertension (principal); E78.5 Hyperlipidemia, unspecified; M19.90 Unspecified osteoarthritis, unspecified site; Z86.2 Personal history of diseases of the blood and blood-forming organs and certain disorders involving the immune mechanism
CPT/HCPCS: 80053; 80061; 85025

== ENCOUNTER 2024-07-24 11:29 | Outpatient (CLI) | payer MEDICARE, SELFPAY ==
--- NOTE | 2024-07-24 11:31 | XR_ITS ---
FINAL REPORT TECHNIQUE: Chest PA & Lateral CLINICAL HISTORY: Left chest pain after twisting wrong COMPARISON: 11/15/2023 FINDINGS: 2 views of the chest were performed. The heart size is normal. The mediastinum is within normal limits. The lungs are underinflated. There is no acute cardiopulmonary process. Scarring is noted at the lung bases. There are no pleural effusions. There is no pneumothorax. The bony thorax appears intact. IMPRESSION: No acute cardiopulmonary process. Reviewed, Interpreted and Dictated by Pablo Feliz MD Transcribed by Aleah Ruiz Authenticated and . [facility]
--- NOTE | 2024-07-24 11:31 | XR_ITS ---
FINAL REPORT CLINICAL HISTORY: Left chest pain after twisting wrong COMPARISON: None FINDINGS: 3 views of the left ribs were obtained. There is no displaced, acute fracture identified. The visualized lungs are clear. No pneumothorax is identified. IMPRESSION: No displaced rib fracture or pneumothorax identified. Reviewed, Interpreted and Dictated by Pablo Feliz MD Transcribed by Aleah Ruiz Authenticated and [facility]
== END 2024-07-24 23:59 | disposition home or self-care (01) ==
LOC: RAD 11:30
PROVIDERS: PCP Internal Medicine; Visit Provider Internal Medicine
DX: R07.89 Other chest pain (principal)
CPT/HCPCS: 71046; 71100

== ENCOUNTER 2024-09-07 12:39 | Outpatient (CLI) | payer MEDICARE, SELFPAY ==
--- NOTE | 2024-09-07 12:43 | XR_ITS ---
FINAL REPORT CLINICAL HISTORY: Left back and left hip pain COMPARISON: None FINDINGS: 3 views of the lumbar spine were obtained. There is no evidence of fracture. There is no malalignment. There is advanced disc space narrowing at L4-5 and L5-S1. Endplate sclerosis is noted. The vertebrae are normal in height. There is moderate anterior osteophyte formation at T11-12, and T12-L1. No paraspinous soft tissue abnormalities identified. IMPRESSION: Advanced degenerative/chronic changes without acute bony abnormality. Reviewed, Interpreted and Dictated by Pablo Feliz MD Transcribed by Aleah Ruiz Authenticated and [facility]
--- NOTE | 2024-09-07 12:43 | XR_ITS ---
FINAL REPORT CLINICAL HISTORY: Left hip pain, recently causing mobility issues. COMPARISON: 12/23/2021 FINDINGS: LEFT HIP: Two views of the left hip with an AP view of the pelvis demonstrate an intramedullary chasidy and compression screw in the proximal left femur. The hip joint space is preserved. There is no acute fracture or dislocation. No soft tissue abnormality is seen. IMPRESSION: Postoperative changes without acute bony abnormality. Reviewed, Interpreted and Dictated by Pablo Feliz MD Transcribed by Aleah Ruiz Authenticated and [facility]
== END 2024-09-07 23:59 | disposition home or self-care (01) ==
LOC: RAD 12:40
PROVIDERS: PCP Internal Medicine; Visit Provider Internal Medicine
DX: M16.12 Unilateral primary osteoarthritis, left hip (principal); M54.50 Low back pain, unspecified; Z98.890 Other specified postprocedural states
CPT/HCPCS: 72100; 73502